=== PATIENT | male | born 1955 | race Caucasian/White ===

== ENCOUNTER 2016-11-11 06:40 | Observation (INO) | payer OTHER ==
[2016-11-11] VITALS (11 sets, daily range): BP systolic 125–158; BP diastolic 68–90; PULSE 56–89; TEMP 36.5–36.9; O2SAT 91–98; Ht 175.3 cm; Wt 91.7 kg
[~2016-11-11] VITALS: Ht 175.3 cm; Wt 91.7 kg
[~2016-11-11 06:40] MED LIST: ALLO300T2 PO; ASPI81TA28 PO; CLON0.5T3 PO; CLOP1TAB15 PO; LPR25 PO; LRS10; LSN5 PO; LXP/20 PO; NTRSLP4 SL; OMEP20CA9 PO; PRD10 PO; ZTA10 PO
[2016-11-11] MEDS ORDERED: ventolin hfa INH (06:46)
[2016-11-11] MEDS ORDERED: DOXY100T PO (06:47)
[2016-11-11] MEDS ORDERED: HEPARIN SOD (PORCINE) 1000 UNIT/ML 10 ML VIAL ONE (08:26)
[2016-11-11] MEDS ORDERED: FENTANYL CITRATE INJ 50 MCG/1 ML 2 ML VIAL ONE (08:26)
[2016-11-11] MEDS ORDERED: NiCARDipine HCL INJ 2.5 MG/ML 10 ML AMP ONE (08:26)
[2016-11-11] MEDS ORDERED: NITROGLYCERIN/D5W 100MCG/ML 20ML SYR ONE (08:27)
[2016-11-11] MEDS ORDERED: MIDAZOLAM HCL 1 MG/ML 2ML VIAL ONE ×2 (08:27→09:30)
[2016-11-11] MEDS ORDERED: EPTIFIBATIDE 0.75 MG/ML 75MG VIAL IV ONE ×2 (09:25→09:50)
[2016-11-11] MEDS ORDERED: EPTIFIBATIDE 2 MG/ML 10 ML VIAL IV ONE (09:25)
--- NOTE | 2016-11-11 09:57 | Cardiac Catheterization ---
Procedure Note Procedure Date Nov 11, 2016. 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 Gallagher Insurance Claims Adjuster(s) Kee RUBBER BELT SPLICER Estimated Blood Loss 5cc Medication(s) Fentanyl, Heparin, Nicardipine, Nitroglycerin, Versed, Lidocaine 1% Summary of Findings 95% distal RCA instent restenosis at the AV groove bifurcation 50% mid RCA in stent restenosis at the acute margin 50% mid LAD - angiographically unchanged compared to prior study Hemodynamics Rest Ao: 92/58/75 Final Ao: 106/64/82 LV: 105/4/8 Recommendations PCI without planned CABG Specimens None Radiation Exposure (mGy) 1488 Contrast (mls) 70 Procedural Complication(s) None Disposition Patient remained in labor trainer for PCI to RCA ACC Data Cardiac Status Clinical evaluation leading to the procedure CAD Presntation: Unstable angina, Positive Stress Test Anginal Classification: CCS III Heart Failure: No Stress Echocardiogram: Yes - Positive, Risk/Extent of Ischemia (High) Coronary Anatomy Dominant: Right Left Main (% Stenosis): Normal LAD (% Stenosis): Ostial (0%), Proximal (20%), Mid (50%), Distal (10% , small left to right collaterals noted) D1 (% Stenosis): Normal D2 (% Stenosis): Normal D3 (% Stenosis): Normal Circumflex (% Stenosis): Ostial (20%), Proximal (20%), Mid (10%), Distal (10%) OM1 (% Stenosis): Ostial (0%), Proximal (20%), Mid (10%), Distal (10%) L PL1 (% Stenosis): Ostial (small 1mm vessel with diffuse mild luminal irregularities (10%)) L PL2 (% Stenosis): Ostial (small 1mm vesssel with diffuse mild luminal irregularities (10%)) RCA (% Stenosis): Ostial (0%), Proximal (stent patent with 10% ISR), Mid (50% in stent restenosis at the acute margin), Distal (95% in stent restenosis) R PDA (% Stenosis): Ostial (20%), Proximal (10%), Mid (10%), Distal (10%) R PL1 (% Stenosis): Ostial (0%), Proximal (10%), Mid (10%), Distal (10%) R PL2 (% Stenosis): Ostial (30%), Proximal (20%), Mid (10%), Distal (10%) AM (% Stenosis): Ostial (30-40%), Proximal (0%), Mid (0%), Distal (0%) Ramus (% Stenosis): Normal Diagnostic Status: Elective Closure Device Percutaneous Entry Location: Radial Closure Device: Radial Band Intraprocedure Events Significant Dissection: No Perforation: No
[2016-11-11] MEDS ORDERED: NITROGLYCERIN 0.4 MG SL PER TAB CHARGE SL PRN (11:30)
[2016-11-11] MEDS ORDERED: CLONAZEPAM 0.5 MG TAB PO PRN (11:30)
[2016-11-11] MEDS ORDERED: ACETAMINOPHEN 325 MG TAB PO PRN (11:30)
[2016-11-11] MEDS ORDERED: ATROPINE SULFATE 0.1 MG/ML 5ML SYR IV PRN (11:30)
[2016-11-11] MEDS ORDERED: ALUMINUM/MAGNESIUM/SIMETH (MAALOX MAX) 30 ML UDC PO PRN (11:30)
[2016-11-11] MEDS ORDERED: MAGNESIUM HYDROXIDE SUSP 30 ML UDC PO PRN (11:30)
[2016-11-11] MEDS ORDERED: EPTIFIBATIDE BOLUS / DRIP IV ONE (11:30)
[2016-11-11] MEDS ORDERED: ZOLPIDEM TARTRATE 5 MG TAB PO PRN (11:30)
--- NOTE | 2016-11-11 11:39 | Procedure Note ---
Post-Mod Sedation Assessment General Date of Moderate Sedation Nov 11, 2016. Vital Signs: Vital Signs Past 12 Hours Date Time Temp Pulse Resp B/P Pulse Ox O2 Delivery O2 Flow Rate FiO2 11/11/16 11:30 60 18 124/75 95 Room Air 11/11/16 11:15 59 18 125/75 95 Room Air 11/11/16 10:55 60 18 128/68 95 Room Air 11/11/16 07:17 36.5 63 16 158/90 95 Room Air Review - Discharge Criteria Vital Signs Stable: Yes Alert/Oriented/Conversant: Yes Returned to Baseline Mental St: Yes Nausea Absent/Minimal: Yes Pain/Discomfort/Absent/Minimal: Yes Normal/Baseline Respirations: Yes Active Bleeding?: No Pt Received D/C Instructions: N/A Prescriptions Given: None Specific Proced. D/C Criteria Distal Pulses Present (Cardiac: Yes Groin site assessed-Card Cath: N/A Voided Prior To Discharge: N/A Discharged Patients Adult Escort/Transportation: N/A
--- NOTE | 2016-11-11 11:58 | Cardiac Catheterization ---
Procedure Note Procedure Date Nov 11, 2016. Pre-Procedure Diagnosis Angina, Positive Stress Test, CAD AUC Score 8 Post-Procedure Diagnosis Severe CAD, Successful PCI Procedure(s) Performed Coronary Angiography, PTCA, Drug Eluting Stent Outpatient Admitting Clerk Dr. Tobar Care Services Manager(s) FARZANEH Lopez Estimated Blood Loss <45 ml Medication(s) Fentanyl, Heparin (Therapeutic activated clotting times documented), Integrilin , Nicardipine (Intracoronary and intra-arterial), Nitroglycerin (Intracoronary and intra-arterial), Versed, Lidocaine 1% Summary of Findings The patient was referred by Dr. Gallagher for PCI. Please see his diagnostic catheterization report. The patient had worsening anginal symptoms and stress imaging showing ahigh extent of ischemia. Site: 6 Fr slender Glidesheath R radial artery inserted at time of diagnostic procedure. Hemostasis: Terumo TR band Complications: none Findings: 95-99% subtotal distal RCA stenosis involving origin of PDA. After the 95-99 % stenosis there was a 50% stenosis. AMELIA 2 flow into PDA. PTCA( 2 X 12 mm Sprinter, 2.25 X 10 mm [place] [employer] cutting balloon) and PALLAVI ( Medtronic Resolute Integrity 2.25 X 22 mm, post dilated with NC Trek 2.5 X 15 mm balloon). Residual stenosis at stent site 0-10%. Stent deployed over origin of PDA. No dissection,thrombus,perforation,or distal embolic event. AMELIA 3 flow in distal RCA and R PL. Improved flow in PDA compared to pre intervention. Ostial PDA 30-50% stenosis. Distal RCA with 50% stent stenosis prior to stent. Present on diagnostic angiography. Plan: Admit for OBS. IV Integrilin for 18 hr. Continue aspirin,clopidogrel, lisinopril,metoprolol. Patient intolerant of statins. Hemodynamics Rest Ao: 92/58/75 mm Hg Final Ao: 127/66/91 mm Hg LV: NA Recommendations Medical therapy and/or Counseling, PCI without planned CABG Specimens None Radiation Exposure (mGy) 5419 total for both diagnostic and PCI procedures Contrast (mls) 280 ml Optiray total for both procedures Fluids (cc crystalloids) 450 total for both procedures. Drains none Anesthesia IV versed,fenatnyl Procedural Complication(s) None Disposition PCU ACC Data Cardiac Status Clinical evaluation leading to the procedure CAD Presntation: Unstable angina (For complete details of diagnostic procedure ,clinical history, and indications please see diagnostic cardiac catheterization report by Dr. Gallagher.), Positive Stress Test Diagnostic Physician's Name: Carlos Gallagher DO Status: Elective Closure Device Percutaneous Entry Location: Radial Closure Device: Radial Band PCI Indication: Unstable Angina, Angina despite med therapy, + Stress Test Lesion Segment Name: Dista RCA Culprit Artery: Yes Stenosis Prior to Rx (%): 99 Chronic Total Occlusion: No IVUS: No FFR: No Pre-Procedure AMELIA Flow: 3 Previously Treated Lesion: Yes Treated Lesion: Timeframe: greater than 2 years Treated with Stent: Yes In-Stent Restenosis: Yes In-Stent Thrombosis: No Stent Type: Non-PALLAVI Lesion Complexity: Non-High/Non-C Lesion Length (mm): 18 Thrombus Present: No Bifurcation Lesion: Yes Guidewire Across Lesion: Yes Guidewire: Stenosis Post-Procedure (%): 0-10 Post-Procedure AMELIA Flow: 3 Device(s) Deployed: Yes Type of Device(s): Medtronic Resolute Integrity 2.25 X 22 mm PALLAVI post dilated with 2.5 X 15 mm NC balloon. Intraprocedure Events Significant Dissection: No Perforation: No
[2016-11-11 12:49] LABS: BASO % 0.3 %; BASO ABS # 0.03 K/uL (0-0.2); EOS % 1.5 %; HEMATOCRIT 43.1 % (42-52); IG% 0.2 %; LYMPH % 29.3 %; LYMPH ABS # 2.51 K/uL (1.2-3.4); MEAN CELL VOLUME 92.1 fL (80-100); MEAN CORPUSCULAR HEMOGLOBIN 32.1 pg (25-34); MEAN PLATELET VOLUME 9.5 fL (7.4-10.4); MONO % 4.3 %; NEUT % 64.4 %; PLATELET COUNT 254 K/uL (130-400); RED BLOOD COUNT 4.68 M/uL (4.7-6.1); WHITE BLOOD COUNT 8.58 K/uL (4.8-10.8)
[2016-11-11 12:52] LABS: COMPLETE YES; MEAN CORPUSCULAR HGB CONC 34.8 g/dl (32-36)
[2016-11-11] MEDS: SODIUM CHLORIDE 0.9% 1000ML 1,000 ML IV SCH ×2 (13:11→21:49)
[2016-11-11 13:13] LABS: BUN/CREATININE RATIO 14.2 (10-20); CREATININE 0.73 mg/dl (0.60-1.40)
[2016-11-11] MEDS ORDERED: ALBUTEROL HFA INHALER 18 GM INH PRN (13:15)
[2016-11-11] MEDS: EPTIFIBATIDE INJ 75 MG PREMIXED IV SCH ×2 (13:35→20:32)
[2016-11-11] MEDS ORDERED: IV FLUIDS COMPLETED PRN (15:15)
[2016-11-11] MEDS: PANTOprazole SOD 40 MG TAB PO SCH (20:32)
[2016-11-12] MEDS: EPTIFIBATIDE INJ 75 MG PREMIXED IV SCH (03:30)
[2016-11-12 03:59] VITALS: BP 127/69; PULSE 55; TEMP 37.1; O2SAT 98
[2016-11-12] MEDS ORDERED: Integrelin infusion --> STOP ORDER ONE (05:00)
[2016-11-12] MEDS: SODIUM CHLORIDE 0.9% 1000ML 1,000 ML IV SCH (07:30)
[2016-11-12 07:39] VITALS: BP 153/79; PULSE 59; TEMP 36.4; O2SAT 95
[2016-11-12 08:00] VITALS: O2SAT 95
[2016-11-12] MEDS: PANTOprazole SOD 40 MG TAB PO SCH (08:14)
[2016-11-12] MEDS: METOPROLOL TARTRATE 25 MG TAB PO SCH ×2 (08:15→08:18)
[2016-11-12] MEDS ORDERED: ALLOPURINOL 300 MG TAB PO SCH (09:00)
[2016-11-12] MEDS ORDERED: CLOPIDOGREL BISULFATE 75 MG TAB PO SCH ×2 (09:00)
[2016-11-12] MEDS ORDERED: LISINOPRIL 5 MG TAB PO SCH (09:00)
[2016-11-12] MEDS ORDERED: ASPIRIN 81 MG ECTAB PO SCH (09:00)
[2016-11-12] MEDS ORDERED: ESCITALOPRAM OXALATE 20 MG TAB PO SCH (09:00)
--- NOTE | 2016-11-12 09:58 | Cardiology Follow-Up ---
Subjective General Date of Service: Nov 12, 2016. Pt evaluation today including: conversation w/ patient, physical exam, chart review, lab review, review of studies, review of inpatient medication list History of Present Illness The patient is a 61 year old male seen in follow up. Feeling well from a cardiovascular standpoint. No recurrent chest discomfort. No dysrhythmia on telemetry. Offers no complaints at this time. Allergies Coded Allergies: Penicillins (Verified Allergy, Intermediate, HIVES, 12/06/15) Sulfa Antibiotics (Verified Allergy, Intermediate, HIVES, 12/06/15) Azithromycin (Verified Allergy, Unknown, HIVES, 12/06/15) Tetanus Toxoid (Verified Allergy, Unknown, swelling, 12/06/15) Simvastatin (Verified Adverse Reaction, Unknown, MUSCLE PAIN, 12/06/15) Social History Smoking Status: Current Every Day Smoker Hx Tobacco Use In Past Year?: Yes Hx Alcohol Use - Type And Amou: No (hx of ) Hx Substance Use - Type And Am: No Review of Systems Respiratory: No cough, No dyspnea at rest, No dyspnea on exertion, No hemoptysis, No shortness of breath, No sputum, No wheezing Cardiac: No PND, No chest pain, No claudication, No edema, No orthopnea, No palpitations Physical Exam Vital Signs Last Vital Signs Documentation Date Time Temp Pulse Resp B/P Pulse Ox O2 Delivery O2 Flow Rate FiO2 11/12/16 09:27 Room Air 11/12/16 08:00 95 11/12/16 07:39 36.4 59 16 153/79 Physical Exam Constitutional: General Apperance: well-nourished Level of Distress: NAD Ambulation: ambulating normally Head: normocephalic, atraumatic Neck: supple, trachea midline Lungs: Auscultation: breath sounds normal, no wheezing, no rales/crackles, no rhonchi Cardiovascular: Heart Auscultation: RRR, normal S1, normal S2, no murmurs, no rubs, no gallops Peripheral Pulses: Radial Pulse: normal on the left, normal on the right Abdomen: Bowel Sounds: normal Inspection & Palpation: soft, non-distended, no tenderness, guarding & rebound Extremities: no cyanosis, no edema, no clubbing, no ulcers Neurologic: Gait & Station: pertinent finding (No focal motor deficit) Cranial Nerves: grossly intact Assessment and Plan Assessment and Plan Imp: 1. S/p cardiac catheterization revealing RCA distal BMS in-stent restenosis - s/ p PALLAVI. 2. Residual 50% mid LAD and 50% mid RCA BMS ISR 3. Dyslipidemia 4. Tobacco abuse 5. Statin intolerance Plan: Post catheterization activity restrictions reviewed. Stressed importance of continuing plavix for a minimum of one year post-PCI uninterrupted. Other cardiovascular medications will be continued as previously ordered. Smoking cessation advised. Follow up with Dr. Mills as scheduled. Laboratory Results Last 24 Hours Test 11/11/16 10:08 11/11/16 10:20 11/11/16 12:35 Kaolin Activated Coagulation Time 0 SECONDS 642 SECONDS White Blood Count 8.58 K/uL Red Blood Count 4.68 M/uL Hemoglobin 15.0 g/dL Hematocrit 43.1 % Mean Corpuscular Volume 92.1 fL Mean Corpuscular Hemoglobin 32.1 pg Mean Corpuscular Hemoglobin Concent 34.8 g/dl Platelet Count 254 K/uL Mean Platelet Volume 9.5 fL Neutrophils (%) (Auto) 64.4 % Lymphocytes (%) (Auto) 29.3 % Monocytes (%) (Auto) 4.3 % Eosinophils (%) (Auto) 1.5 % Basophils (%) (Auto) 0.3 % Neutrophils # (Auto) 5.52 K/uL Lymphocytes # (Auto) 2.51 K/uL Monocytes # (Auto) 0.37 K/uL Eosinophils # (Auto) 0.13 K/uL Basophils # (Auto) 0.03 K/uL RDW Standard Deviation 46.4 fL RDW Coefficient of Variation 13.8 % Immature Granulocyte % (Auto) 0.2 % Immature Granulocyte # (Auto) 0.02 K/uL Sodium Level 139 mmol/L Potassium Level 4.0 mmol/L Chloride Level 106 mmol/L Carbon Dioxide Level 23 mmol/L Anion Gap 10.0 mmol/L Blood Urea Nitrogen 10 mg/dl Creatinine 0.73 mg/dl Est Creatinine Clear Calc Drug Dose 122.7 ml/min Estimated GFR () 117.7 Estimated GFR (Non- 101.5 BUN/Creatinine Ratio 14.2 Random Glucose 112 mg/dl Calcium Level 9.0 mg/dl
--- NOTE | 2016-11-12 10:01 | Discharge Instructions ---
Discharge Instructions Procedure Procedure Date: Nov 12, 2016. Reason for Visit: Abdnormal Stress Test *Dr Gallagher To Do*. Discharge Discharge Date: Nov 12, 2016. Discharge Diagnosis: RCA in-stent restenosis s/p PALLAVI Last Recorded Wt (Kilograms): 91.700 Anesthesia Post Anesthesia Instructions: If you have had General Anesthesia or IV Sedation: * Do not drive today. * Resume driving when surgeon permits. * Do not make important decisions or sign legal documents today. * Call surgeon for: 1. Temperature elevations greater than 101 degrees F. 2. Uncontrollable pain. 3. Excessive bleeding. 4. Persistent nausea and vomiting. 5. Medication intolerance (nausea, vomiting or rash). * For nausea and vomiting use only clear liquids such as: tea, soda, bouillon until nausea subsides, then gradually increase diet as tolerated. * If you have any concerns or questions, call your surgeon's office. If physician is unavailable and it is an emergency, call 911 or go to the nearest emergency room. Instructions Activity Recommendations: limitations as noted below Return to School/Work: with the following limitations Recommended Home Diet: resume previous diet Allergies: Coded Allergies: Penicillins (Verified Allergy, Intermediate, HIVES, 12/06/15) Sulfa Antibiotics (Verified Allergy, Intermediate, HIVES, 12/06/15) Azithromycin (Verified Allergy, Unknown, HIVES, 12/06/15) Tetanus Toxoid (Verified Allergy, Unknown, swelling, 12/06/15) Simvastatin (Verified Adverse Reaction, Unknown, MUSCLE PAIN, 12/06/15) Provider Instructions ACTIVITY RECOMMENDATIONS: Excess manipulation of the wrist should be avoided for the next 24-48 hours. * No lifting over 2 pounds (approximately a 1/2 gallon of milk) with the utilized arm for 24 hours. * No strenuous activity such as bowling or tennis for 3 days. * Keep the site of the procedure covered with a bandage for 24 hours. *You may shower the day after the procedure. Do not take a tub bath or submerge the puncture site in water for the next 3 days. *Do not operate any motorized equipment for 3 days. SPECIAL CARE INSTRUCTIONS: The site may be slightly bruised and sore following your procedure. Should any of the following occur, contact the DrZoey who performed your procedure. 1. Redness/inflammation, swelling, chills, or fever, or colored drainage at procedure site within 3-7 days after your procedure. 2. Coldness, discoloration, ongoing numbness, severe pain, or swelling. Expect mild tingling of hand and tenderness at the puncture site for up to three days. If this persists beyond three days, or other symptoms develop, notify the Dr. who performed your procedure. BLEEDING: If the procedure site on your wrist begins to bleed, do not panic 1. Place 1 or 2 fingers firmly just slightly above the insertion site to stop the bleeding. You may be able to feel your pulse as you hold pressure. 2. Lift your finger after 5 minutes to see if the bleeding has stopped. 3. Once the bleeding has stopped, gently wipe the wrist area clean with a bandage. * If the bleeding from your wrist does not stop after 10 minutes, or if there is a large amount of bleeding or spurting, call 911 (do not drive yourself to the hospital). SKIN IRRITATION: * You may experience some redness and/or swelling in the area where radiation was administered. If any skin irritation occurs, please contact your family physician. FOLLOW UP VISIT: Keep any scheduled doctor appointments. Follow Up Follow-up with: Dr. Mills as schedule December 17, 2016 Elvia Seo Recommendations: Call your doctor if: * Temperature above 101 degrees * Pain not relieved by pain medicine ordered * There is increased drainage or redness from any incision * You have any unanswered questions or concerns. Your Doctors Instructions noted above were prepared by provider Carlos Gallagher. Patient Signature Section: Patient Instructions Signature Page Dennis Ronak Patient (or Guardian) Signature/Date: I have read and understand the instructions given to me by my caregivers. Caregiver/RN/Doctor Signature/Date: The above-named patient and/or guardian has received patient instructions on this date. + Original Patient Signature Page (only) stays with chart. Please make copy for patient.
--- NOTE | 2016-11-12 10:31 | DISCHARGE SUMMARY ---
REFERRING PHYSICIAN: Dr. Mannie Mills. ADMITTING DIAGNOSIS: 1. Unstable angina. 2. Abnormal exercise stress echocardiography suggesting inferior posterior ischemia. 3. Chronic coronary disease. History of stenting to the right coronary artery. 4. Tobacco use. 5. Dyslipidemia with statin intolerance. DISCHARGE DIAGNOSIS: Coronary artery disease, status post drug-eluting stent implantation to the distal right coronary artery. PROCEDURES DURING HOSPITALIZATION: Cardiac catheterization, drug-eluting stent implantation to the right coronary artery. ADMISSION MEDICATIONS: 1. Plavix 75 mg daily. 2. Allopurinol 300 mg daily. 3. Aspirin 81 mg daily. 4. Lexapro 20 mg daily. 5. Lisinopril 5 mg daily. 6. Metoprolol tartrate 25 mg daily. 7. Protonic 40 mg twice daily. 8. Klonopin 0.25 mg twice daily as needed. 9. Sublingual nitro as needed. DISCHARGE MEDICATIONS: Same. HOSPITAL COURSE: The patient was admitted for observation 11/11/2016 for diagnostic catheterization. The cardiac catheterization revealed severe distal in-stent restenosis of his right coronary artery. A drug-eluting stent was successful implanted by Dr. Tobar. No complications. There is residual mid in-stent restenosis of the right coronary artery, as well as 50% mid LAD stenosis, which is unchanged. The patient tolerated the procedure well. No complications. See procedure report under separate cover. The patient was discharged to home in stable condition. No recurrent angina. Followup appointment scheduled with Dr. Mills on December 17.
[2016-11-12 10:44] VITALS: BP 153/79; PULSE 59; TEMP 36.4; O2SAT 95
== END 2016-11-12 11:05 | disposition home or self-care (01) ==
LOC: C.CATH 06:40 → C.2T 11:34
PROVIDERS: ADMIT Internal Medicine Cardiovascular Disease; ATTEND Internal Medicine Cardiovascular Disease
DX: I25.110 Atherosclerotic heart disease of native coronary artery with unstable angina pectoris (principal); E78.5 Hyperlipidemia, unspecified; F17.210 Nicotine dependence, cigarettes, uncomplicated

== ENCOUNTER 2016-12-31 17:03 | Emergency (ER) | payer OTHER ==
[~2016-12-31] VITALS: Ht 175.3 cm; Wt 90.8 kg
[~2016-12-31 17:03] MED LIST changes: +DOXY100T PO; -LRS10; -ZTA10 PO; +ventolin hfa INH
[2016-12-31 17:09] VITALS: TEMP 36.8; Ht 175.3 cm; Wt 90.8 kg
[2016-12-31] MEDS ORDERED: OPTIRAY 320 IV PRN (17:45)
[2016-12-31 17:48] LABS: BASO % 0.2 %; BASO ABS # 0.03 K/uL (0-0.2); COMPLETE YES; EOS % 0.8 %; HEMATOCRIT 42.1 % (42-52); IG% 0.4 %; LYMPH % 14.8 %; LYMPH ABS # 2.11 K/uL (1.2-3.4); MEAN CELL VOLUME 90.5 fL (80-100); MEAN CORPUSCULAR HEMOGLOBIN 31.2 pg (25-34); MEAN CORPUSCULAR HGB CONC 34.4 g/dl (32-36); MEAN PLATELET VOLUME 9.1 fL (7.4-10.4); MONO % 6.7 %; NEUT % 77.1 %; PLATELET COUNT 263 K/uL (130-400); RED BLOOD COUNT 4.65 M/uL (4.7-6.1); WHITE BLOOD COUNT 14.21 K/uL (4.8-10.8)
[2016-12-31] MEDS ORDERED: MoRPHine SULFATE 10 MG/ML CARP/VIAL IV STA (17:51)
[2016-12-31] MEDS ORDERED: ONDANSETRON INJ 2 MG/ML 2 ML VIAL IV STA (17:52)
[2016-12-31] MEDS ORDERED: MoRPHine SULFATE 4 MG/ML 1 ML CARP\\VIAL ONE (17:56)
[2016-12-31] MEDS ORDERED: NAPR-1168 PO (17:56)
[2016-12-31] MEDS ORDERED: EZET10TA63 PO (17:56)
[2016-12-31] MEDS ORDERED: ACET-1311 PO (17:56)
[2016-12-31] MEDS ORDERED: PRVHFAIN INH (17:56)
[2016-12-31] MEDS ORDERED: LSN5 PO (17:56)
[2016-12-31 18:11] LABS: BUN/CREATININE RATIO 13.1 (10-20); CALCIUM 8.8 mg/dl (8.5-10.1); CREATININE 0.78 mg/dl (0.60-1.40); POTASSIUM 3.6 mmol/L (3.5-5.1)
[2016-12-31 18:14] LABS: ALB/GLOB RATIO 0.9 (0.9-2)
--- NOTE | 2016-12-31 18:40 | DIAGNOSTIC IMAGING REPORT ---
CT SCAN OF THE ABDOMEN AND PELVIS WITH IV CONTRAST CLINICAL HISTORY: Left lower quadrant abdominal pain. COMPARISON STUDY: Abdominal CT dated 12/06/15. TECHNIQUE: Following the IV administration of 93 cc of Optiray 320, CT scan of the abdomen and pelvis is performed from the lung bases to the proximal femora. Images are reviewed in the axial, sagittal, and coronal planes. IV contrast was administered without complication. Automated dose control exposure was utilized. CT DOSE: 646.98 mGy.cm FINDINGS: Lung bases: The heart is mildly enlarged and without pericardial effusion. The coronary arteries are densely calcified. The lung bases are clear noting dependent atelectasis. There is a small hiatal hernia. Liver: The contrast-enhanced liver is enlarged, measuring 20 cm in length. The liver demonstrates diffusely diminished attenuation consistent with hepatic steatosis. There is minimal central intrahepatic biliary ductal dilatation. The hepatic veins and portal veins are patent. Gallbladder: Surgically absent noting clips in the gallbladder fossa. Spleen: Normal in size and attenuation. Pancreas: Unremarkable. Adrenal glands: Unremarkable. Kidneys: The contrast enhanced kidneys are normal in size and without hydronephrosis. The kidneys enhance symmetrically. There is nonspecific bilateral perinephric stranding which is unchanged from previous. Abdominal vasculature: The abdominal aorta is normal in course and caliber noting moderate to advanced atherosclerotic calcification. Bowel: The small bowel and colon are normal in course and caliber. There is mild to moderate colonic diverticulosis. There is wall thickening with associated pericolonic infiltration and trace fluid involving the distal descending colon consistent with acute diverticulitis. There is no evidence of abscess. The appendix is well-visualized and normal. Peritoneum: There is no intraperitoneal free air or abdominal ascites. A midline surgical scar is suspected in the pelvis. A tiny fat-containing umbilical hernia is seen. Lymphadenopathy: None. Pelvic viscera: The bladder, prostate, and seminal vesicles are normal as visualized. Skeletal structures: No lytic or blastic lesions are seen. There is mild lumbar sacral spondylosis. IMPRESSION: 1. Findings are consistent with acute diverticulitis involving the distal descending colon. No intraperitoneal free air or abscess is seen. 2. Hepatomegaly and hepatic steatosis. 3. There is advanced atherosclerotic calcification of the coronary arteries and abdominal aorta. 4. Additional findings as above. Electronically signed by: Vivek Pond M.D. 12/31/2016 6:39 PM Dictated Date/Time: 12/31/2016 6:33 PM
[2016-12-31 18:59] LABS: URINE APPEARANCE CLEAR (CLEAR); URINE BILIRUBIN NEG (NEG); URINE COLOR YELLOW; URINE NITRITE NEG (NEG); URINE PH 5.5 (4.5-7.5); URINE SPECIFIC GRAVITY 1.018 (1.000-1.030); UROBILINOGEN NEG (NEG)
[2016-12-31 19:12] LABS: MANUAL MICROSCOPIC REQUIRED? NO; REVIEW REQ? NO
[2016-12-31] MEDS ORDERED: HYDROmorphone INJ 1 MG/ML SYR IV STA (19:15)
[2016-12-31] MEDS ORDERED: METRONIDAZOLE 250 MG TAB PO STA (19:16)
[2016-12-31] MEDS ORDERED: CIPR-255 PO (19:25)
[2016-12-31] MEDS ORDERED: OXYC1TAB3 PO (19:25)
[2016-12-31] MEDS ORDERED: ONDA4TAB10 SL (19:25)
[2016-12-31] MEDS ORDERED: METR-163 PO (19:25)
--- NOTE | 2016-12-31 19:27 | EMERGENCY ROOM VISIT NOTE ---
History First contact with patient: 17:12 Chief Complaint: ABDOMINAL PAIN Stated Complaint: LEFT SIDE PAIN, ABDOMINAL PAIN Nursing Triage Summary: patient started with left sided pain last evening after working in the yard taking trees down. the pain has gotten worse on the left side radiated to the back with ambulation. states he had a stool yesterday with some fresh blood in it and does have hemorroids. no blood today. Aleksander is on plavix and aspirin. History of Present Illness The patient is a 61 year old male who presents to the Emergency Room with complaints of left lower quadrant abdominal pain which began last evening after working in the yard taking down trees. The patient reports he has a pain in his left lower abdomen which radiates into the right lower abdomen and into the back. He states he has associated diarrhea and did have a small amount of bright red blood in the stool. He reports that he has felt feverish. He has associated decreased appetite, nausea and dizziness. The patient does have a history of diverticulitis as well as a history of GI bleed. He reports a surgical history of a partial colectomy due to diverticulitis, cholecystectomy and fundoplication. The patient has been taking Tylenol at home for his pain with little relief. He rates the discomfort a 10/10. The pain is worse with movement or walking. The patient denies any headache, neck pain, chest pain, shortness of breath, urinary symptoms or vomiting. Review of Systems A complete 10-point Review of Systems was discussed with the patient, with pertinent positives and negatives listed in the History of Present Illness. All remaining Review of Systems questions can be considered negative unless otherwise specified. Past Medical/Surgical History Medical Problems: (1) Back pain (2) Chaves esophagus (3) CAD (coronary artery disease) (4) COPD (chronic obstructive pulmonary disease) (5) Depression (6) Dyslipidemia (7) Esophageal stricture (8) GI bleed (9) Gout (10) Hiatal hernia (11) Hypertension (12) Kidney stone (13) Sleep apnea (14) Tobacco abuse disorder (15) Upper GI bleed Surgical Problems: (1) H/O arthroscopy of knee (2) H/O colonoscopy (3) History of Wei fundoplication (4) History of ureter stent (5) Hx of cholecystectomy (6) S/P coronary artery stent placement (7) S/p EGD (8) S/p partial colectomy with anastomosis Family History Diabetes mellitus FH: cancer FH: heart disease BROTHER (VT and stents in 40s) FHx: gallbladder disease Kidney disease or stones Ulcer Social History Smoking Status: Current Every Day Smoker Alcohol Use: occasionally Drug Use: none Marital Status: Housing Status: lives with significant other Occupation Status: employed Current/Historical Medications Scheduled Allopurinol (Zyloprim), 300 MG PO QPM Aspirin (Aspirin Ec), 81 MG PO QPM Ciprofloxacin Hcl (Cipro), 500 MG PO BID Clopidogrel (Plavix), 75 MG PO QPM Escitalopram Oxalate (Escitalopram Oxalate), 20 MG PO QPM Ezetimibe (Zetia), 10 MG PO QPM Lisinopril (Lisinopril), 5 MG PO QPM Metoprolol Tartrate (Lopressor), 12.5 MG PO QPM Metronidazole (Flagyl), 500 MG PO TID Omeprazole (Prilosec), 20 MG PO QPM Ondasetron Odt (Zofran Odt), 4 MG SL Q6H Scheduled PRN Acetaminophen (Tylenol), 650 MG PO Q8 PRN for Pain Albuterol (Ventolin Hfa), 2 PUFF INH Q4 PRN for Wheezing Clonazepam (Klonopin), 0.25 MG PO BID PRN for Anxiety Naproxen Ds (Naprosyn Ds), 550 MG PO BID PRN for Pain Nitroglycerin (Nitrostat), 0.4 MG SL UD PRN for Chest Pain Oxycodone Ir (Roxicodone Ir), 1-2 TAB PO Q4H PRN for Pain Prednisone (Prednisone), 10 MG PO UD PRN for NEEDED RESCUE KIT Allergies Coded Allergies: Penicillins (Verified Allergy, Intermediate, HIVES, 12/31/16) Sulfa Antibiotics (Verified Allergy, Intermediate, HIVES, 12/31/16) Azithromycin (Verified Allergy, Unknown, HIVES, 12/31/16) Tetanus Toxoid (Verified Allergy, Unknown, swelling, 12/31/16) Simvastatin (Verified Adverse Reaction, Unknown, MUSCLE PAIN, 12/31/16) Physical Exam Vital Signs Date Time Temp Pulse Resp B/P Pulse Ox O2 Delivery O2 Flow Rate FiO2 12/31/16 20:03 78 129/82 95 12/31/16 19:03 69 20 140/73 93 Room Air 12/31/16 18:30 72 20 161/86 90 Room Air 12/31/16 17:09 36.8 77 18 143/87 96 Room Air Physical Exam VITALS: Vitals are noted on the nurse's note and reviewed by myself. Vital signs stable. GENERAL: This is a 61-year-old male, in no acute distress, nondiaphoretic, well- developed well-nourished. SKIN: Capillary reflex less than 2 seconds. HEENT: Normocephalic. PERRLA. EOMI. Nares patent. Mucous membranes moist. Neck is supple without nuchal rigidity. HEART: Regular rate and rhythm without murmurs gallops or rubs. LUNGS: Clear to auscultation bilaterally without wheezes, rales or rhonchi. ABDOMEN: Positive bowel sounds x 4. Soft, with moderate tenderness over the left lower quadrant. No guarding or rebound tenderness. NEURO: Patient was alert and oriented to person place and time. Medical Decision & Procedures ER Provider Diagnostic Interpretation: CT SCAN OF THE ABDOMEN AND PELVIS WITH IV CONTRAST IMPRESSION: 1. Findings are consistent with acute diverticulitis involving the distal descending colon. No intraperitoneal free air or abscess is seen. 2. Hepatomegaly and hepatic steatosis. 3. There is advanced atherosclerotic calcification of the coronary arteries and abdominal aorta. 4. Additional findings as above. Laboratory Results 12/31/16 17:35 Red Blood Count 4.65, Mean Corpuscular Volume 90.5, Mean Corpuscular Hemoglobin 31.2, Mean Corpuscular Hemoglobin Concent 34.4, Mean Platelet Volume 9.1, Neutrophils (%) (Auto) 77.1, Lymphocytes (%) (Auto) 14.8, Monocytes (%) (Auto) 6.7, Eosinophils (%) (Auto) 0.8, Basophils (%) (Auto) 0.2, Neutrophils # (Auto) 10.95, Lymphocytes # (Auto) 2.11, Monocytes # (Auto) 0.95, Eosinophils # (Auto) 0.12, Basophils # (Auto) 0.03 12/31/16 17:35 Test 12/31/16 17:35 12/31/16 18:05 White Blood Count 14.21 K/uL (4.8-10.8) Red Blood Count 4.65 M/uL (4.7-6.1) Hemoglobin 14.5 g/dL (14.0-18.0) Hematocrit 42.1 % (42-52) Mean Corpuscular Volume 90.5 fL (80-100) Mean Corpuscular Hemoglobin 31.2 pg (25-34) Mean Corpuscular Hemoglobin Concent 34.4 g/dl (32-36) Platelet Count 263 K/uL (130-400) Mean Platelet Volume 9.1 fL (7.4-10.4) Neutrophils (%) (Auto) 77.1 % Lymphocytes (%) (Auto) 14.8 % Monocytes (%) (Auto) 6.7 % Eosinophils (%) (Auto) 0.8 % Basophils (%) (Auto) 0.2 % Neutrophils # (Auto) 10.95 K/uL (1.4-6.5) Lymphocytes # (Auto) 2.11 K/uL (1.2-3.4) Monocytes # (Auto) 0.95 K/uL (0.11-0.59) Eosinophils # (Auto) 0.12 K/uL (0-0.5) Basophils # (Auto) 0.03 K/uL (0-0.2) RDW Standard Deviation 45.8 fL (36.4-46.3) RDW Coefficient of Variation 14.0 % (11.5-14.5) Immature Granulocyte % (Auto) 0.4 % Immature Granulocyte # (Auto) 0.05 K/uL (0.00-0.02) Anion Gap 11.0 mmol/L (3-11) Est Creatinine Clear Calc Drug Dose 113.6 ml/min Estimated GFR () 114.5 Estimated GFR (Non- 98.8 BUN/Creatinine Ratio 13.1 (10-20) Calcium Level 8.8 mg/dl (8.5-10.1) Total Bilirubin 0.6 mg/dl (0.2-1) Aspartate Amino Transf (AST/SGOT) 13 U/L (15-37) Alanine Aminotransferase (ALT/SGPT) 24 U/L (12-78) Alkaline Phosphatase 119 U/L (45-117) Total Protein 7.5 gm/dl (6.4-8.2) Albumin 3.6 gm/dl (3.4-5.0) Globulin 3.9 gm/dl (2.5-4.0) Albumin/Globulin Ratio 0.9 (0.9-2) Lipase 128 U/L (73-393) Urine Color YELLOW Urine Appearance CLEAR (CLEAR) Urine pH 5.5 (4.5-7.5) Urine Specific [place] 1.018 (1.000-1.030) Urine Protein NEG (NEG) Urine Glucose (UA) NEG (NEG) Urine Ketones NEG (NEG) Urine Occult Blood NEG (NEG) Urine Nitrite NEG (NEG) Urine Bilirubin NEG (NEG) Urine Urobilinogen NEG (NEG) Urine Leukocyte Esterase NEG (NEG) Medications Administered Medications (Trade) Dose Ordered Sig/Jaime Route Start Time Stop Time Status Last Admin Dose Admin Ondansetron HCl (Zofran Inj) 4 mg NOW STAT IV 12/31/16 17:52 12/31/16 17:53 DC 12/31/16 18:01 4 MG Morphine Sulfate (MoRPHine SULFATE INJ) 8 mg STK-MED ONCE .ROUTE 12/31/16 17:56 12/31/16 18:00 DC 12/31/16 18:02 8 MG Hydromorphone HCl (Dilaudid Inj) 1 mg NOW STAT IV 12/31/16 19:15 12/31/16 19:16 DC 12/31/16 19:52 1 MG Oxycodone HCl (Roxicodone Immediate Rel 5MG Home Pack) 1 homepack UD ONCE PO 12/31/16 19:30 12/31/16 19:31 DC 12/31/16 19:53 1 HOMEPACK Ondansetron HCl (ZOFRAN ODT 4MG Home Pack) 1 homepack UD ONCE PO 12/31/16 19:30 12/31/16 19:31 DC 12/31/16 19:53 1 HOMEPACK Ciprofloxacin (Cipro 500MG Home Pack) 1 homepack UD ONCE PO 12/31/16 19:30 12/31/16 19:31 DC 12/31/16 19:53 1 HOMEPACK Metronidazole (Flagyl Tab) 1,000 mg NOW STAT PO 12/31/16 19:16 12/31/16 19:19 DC 12/31/16 19:52 1,000 MG Medical Decision Differential diagnosis includes diverticulitis, colitis, gastroenteritis, abscess, perforation, lower GI bleed, small bowel obstruction, malignancy, urinary tract infection, among others. The patient was evaluated as above. Labs were drawn and IV access was obtained. Imaging studies were performed and read by radiology as above. The patient was medicated with 1 L normal saline solution, 4 mg Zofran IV and 8 mg morphine IV. The patient did report additional pain and was given an additional 1 mg Dilaudid IV prior to discharge. The patient was reassessed multiple times during their stay in the emergency department and remained in stable condition. The patient is a 61-year-old male who presents today complaining of left lower quadrant pain and diarrhea. Labs revealed a moderate leukocytosis with left shift consistent with infection. No concerning anemia. Patient's glucose was slightly elevated at 108, likely secondary to stress. Urinalysis was not suggestive of infection. CT scan of the abdomen and pelvis did show evidence of acute diverticulitis without perforation or abscess. The patient is afebrile and nontoxic in appearance. No concern for sepsis. The patient's bleeding is likely secondary to diverticulitis, and hemoglobin is within normal limits. I do feel the patient can be treated on an outpatient basis. Conservative measures were discussed with the patient. He will be placed on ciprofloxacin and Flagyl. He was given a prescription for OxyIR and Zofran for symptomatic relief. Concerning symptoms which would necessitate return to the emergency department were discussed with the patient. He was instructed to follow-up with his primary care provider within 3-4 days for further evaluation. Based on the patient's presentation, lab results, and imaging studies, I feel the patient is stable for outpatient treatment. The patient's case was reviewed with Dr. Maza, ED attending physician, who agreed with my assessment and treatment plan. Discharge instructions were reviewed with the patient. The patient verbalized understanding of my assessment and treatment plan and was discharged home in good condition. [place] Drug Monitoring Program Search Results: patient reviewed within database, no issues identified Impression Primary Impression: Diverticulitis Departure Information Dispostion Home / Self-Care Condition GOOD Prescriptions Ondasetron Odt (ZOFRAN ODT) 4 Mg Tab 4 MG SL Q6H for Nausea, #15 TAB Prov: Tosha Rae PA-C 12/31/16 Oxycodone Ir (Roxicodone Ir) 5 Mg Tab 1-2 TAB PO Q4H Y for Pain, #15 TAB For Initial Treatment Prov: Tosha Rae PA-C 12/31/16 Metronidazole (Flagyl) 500 Mg Tab 500 MG PO TID for 14 Days, #42 TAB Prov: Tosha Rae PA-C 12/31/16 Ciprofloxacin Hcl (CIPRO) 500 Mg Tab 500 MG PO BID for 14 Days, #28 TAB Prov: Tosha Rae PA-C 12/31/16 Referrals Marquise Orozco M.D. (PCP) Forms Call Back Authorization, HOME CARE DOCUMENTATION FORM, IMPORTANT VISIT INFORMATION Patient Instructions My [facility] Additional Instructions You were prescribed Cipro and Flagyl to be taken as prescribed. This is an antibiotic. All antibiotics have the potential to cause diarrhea. Stop this medication and contact a medical provider if you were to develop any significant adverse side effects including: wheezing, shortness of breath, passing out, vomiting, or a diffuse rash. Always take antibiotics as directed and COMPLETE the ENTIRE course regardless of the improvement of your symptoms. You have been prescribed OxyIR to be used for pain control. Take 1-2 tablets every 4-6 hours as needed for pain. This is a narcotic medication. You cannot drive or consume alcohol while on this medicine. This medicine should only be used for pain that cannot be controlled with [id number] pain medicines. You have been prescribed Zofran to be used for any nausea or vomiting. Take as prescribed. Clear liquid diet for the next 3-4 days, then advance as tolerated. Follow-up with your primary care provider in 3-4 days for further evaluation. Return to the emergency room with fevers, worsening pain, worsening vomiting, large amounts of blood in your stool or any other new/concerning symptoms. Problem Qualifiers Primary Impression: Diverticulitis Diverticulitis site: large intestine Diverticulitis bleeding: with bleeding Diverticulitis complication: without perforation or abscess Qualified Codes : K57.33 - Diverticulitis of large intestine without perforation or abscess with bleeding
[2016-12-31] MEDS ORDERED: ONDANSETRON HOME PACK 4MG OD TAB PO ONE (19:30)
[2016-12-31] MEDS ORDERED: OXYCODONE IR HOME PACK PO ONE (19:30)
[2016-12-31] MEDS ORDERED: CIPROFLOXACIN 500MG HOME PACK PO ONE (19:30)
[2016-12-31 20:03] VITALS: BP 129/82; PULSE 78; O2SAT 95
== END 2016-12-31 20:04 | disposition home or self-care (01) ==
LOC: C.EDB 17:05
DX: K57.32 Diverticulitis of large intestine without perforation or abscess without bleeding (principal); I10 Essential (primary) hypertension; I25.10 Atherosclerotic heart disease of native coronary artery without angina pectoris; E78.5 Hyperlipidemia, unspecified; J44.9 Chronic obstructive pulmonary disease, unspecified; G47.30 Sleep apnea, unspecified; M10.9 Gout, unspecified; K22.2 Esophageal obstruction; F32.9 Major depressive disorder, single episode, unspecified; F17.200 Nicotine dependence, unspecified, uncomplicated; Z87.19 Personal history of other diseases of the digestive system; Z90.49 Acquired absence of other specified parts of digestive tract; Z98.61 Coronary angioplasty status; Z98.890 Other specified postprocedural states; Z79.82 Long term (current) use of aspirin; Z79.899 Other long term (current) drug therapy; Z88.0 Allergy status to penicillin; Z88.2 Allergy status to sulfonamides; Z88.3 Allergy status to other anti-infective agents; Z88.8 Allergy status to other drugs, medicaments and biological substances; Z83.3 Family history of diabetes mellitus; Z80.9 Family history of malignant neoplasm, unspecified; Z82.49 Family history of ischemic heart disease and other diseases of the circulatory system; Z83.79 Family history of other diseases of the digestive system; Z84.1 Family history of disorders of kidney and ureter

== ENCOUNTER → 2017-11-17 | Outpatient (CLI) | payer OTHER ==
[~2017-11-17] MED LIST changes: +ACET-1311 PO; +CIPR-255 PO; -DOXY100T PO; +EZET10TA63 PO; +NAPR-1168 PO; +PRVHFAIN INH; -ventolin hfa INH
--- NOTE | 2017-11-17 08:57 | DIAGNOSTIC IMAGING REPORT ---
R LOWER EXT JOINT WITHOUT CLINICAL HISTORY: 62 years-old Male with RT KNEE PAIN. Chronic right knee pain with prior ACL repair COMPARISON: Knee radiographs 08/19/2016 TECHNIQUE: Multiplanar, multisequence MRI of the right knee was performed without intravenous contrast. FINDINGS: MENISCI: Horizontal undersurface tear involves the medial meniscal body and posterior junction. Vertical tear involves the posterior horn medial meniscus as seen on image 19 series 8 which is not as well seen on the sagittal images. No definite extension into the meniscal root. No displaced fragment identified. CRUCIATE LIGAMENTS: Prior ACL repair with graft appearing intact. Mild angulation of the graft suggests mild root impingement. No evidence of a cyclops lesion. PCL appears intact. COLLATERAL LIGAMENTS: The popliteus tendon, biceps femoris tendon, fibular collateral ligament and iliotibial band are intact. The superficial and deep components of the medial collateral ligament are intact. EXTENSOR MECHANISM: The quadriceps and patellar tendons are intact. The lateral patellar retinaculum is intact. There is moderate thickening with immediate signal involving the insertional aspect of the medial patellar retinaculum suggesting chronic sprain. KNEE JOINT: Moderate joint effusion. Mild associated synovitis. There is mild joint space narrowing with low and intermediate grade chondromalacia involving the medial compartment. No significant joint space narrowing or chondral malacia of the lateral compartment. Intermediate chondral thinning involves the patellar apex without intra-articular loose body identified. 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 BONE MARROW: The bone marrow signal is age appropriate. No fracture, marrow edema, or marrow replacing process. SOFT TISSUES: Mild bursitis of the deep pretibial bursa. Mild soft tissue edema without focal fluid collection within the prepatellar tissues. Mild edema within the infrapatellar fat. Trace Beck's cyst. IMPRESSION: 1. Intact ACL graft with mild roof impingement. No evidence of localized anterior arthrofibrosis or cyclops lesion. 2. Horizontal undersurface tear of the body and posterior junction medial meniscus with vertical tear of the posterior horn medial meniscus. No displaced fragment or parameniscal cyst. 3. Degenerative changes about the knee, most pronounced within the medial and patellofemoral compartments as above. 4. Moderate joint effusion with mild synovitis. The above report was generated using voice recognition software. It may contain grammatical, syntax or spelling errors. Electronically signed by: Perfecto Horton M.D. 11/17/2017 8:56 AM Dictated Date/Time: 11/17/2017 8:31 AM
== END | disposition home or self-care (01) ==
LOC: C.MRI 06:17
PROVIDERS: ATTEND Physical Medicine & Rehabilitation Sports Medicine
DX: M25.561 Pain in right knee (principal)

== ENCOUNTER → 2017-12-12 | Outpatient (CLI) | payer OTHER ==
[~2017-12-12] MED LIST changes: +ASPI325T45 PO; +HYDR-5688 PO; +METR-163 PO; -NAPR-1168 PO; -OMEP20CA9 PO
== END | disposition home or self-care (01) ==
LOC: C.CPL 10:19
PROVIDERS: ATTEND Physician Assistant
DX: S83.231A Complex tear of medial meniscus, current injury, right knee, initial encounter (principal); Z01.818 Encounter for other preprocedural examination; X58.XXXA Exposure to other specified factors, initial encounter

== ENCOUNTER → 2017-12-17 | Day surgery (SDC) | payer OTHER ==
[2017-11-26 08:54] VITALS: BMI 29.0
[2017-12-12 11:10] LABS: HEMATOCRIT 46.1 % (42-52); HEMOGLOBIN 15.7 g/dL (14.0-18.0); MEAN CELL VOLUME 92.9 fL (80-100); MEAN CORPUSCULAR HEMOGLOBIN 31.7 pg (25-34); MEAN CORPUSCULAR HGB CONC 34.1 g/dl (32-36); MEAN PLATELET VOLUME 9.2 fL (7.4-10.4); PLATELET COUNT 284 K/uL (130-400); RED CELL DISTRIBUTION WIDTH CV 13.5 % (11.5-14.5); RED CELL DISTRIBUTION WIDTH SD 45.9 fL (36.4-46.3); WHITE BLOOD COUNT 8.15 K/uL (4.8-10.8)
[2017-12-12 11:34] LABS: CALCIUM 9.4 mg/dl (8.5-10.1); CREATININE 1.02 mg/dl (0.60-1.40); POTASSIUM 4.3 mmol/L (3.5-5.1)
[~2017-12-17] VITALS: Ht 175.3 cm; Wt 91.4 kg
[~2017-12-17] MED LIST changes: +ATROPINE SULFATE 0.1 MG/ML 5ML SYR IV PRN; +CLINDAMYCIN IV 900 MG in DEXTROSE 5% 50ML IV SCH; +CLINDAMYCIN PHOS 150 MG/ML 2 ML VIAL IV SCH; +DEXAMETHASONE SOD INJ 4 MG/ML VIAL ONE; +EpHEDrine SULFATE INJ 50 MG/ML AMP IV PRN; +EpINEphrine HCL INJ 1 MG/ML 1ML SYRINGE ONE; +FENTANYL CITRATE INJ 50 MCG/1 ML 2 ML VIAL IV PRN; +FENTANYL CITRATE INJ 50 MCG/1 ML 2 ML VIAL ONE; +FLUMAZENIL 0.1 MG/1 ML 10 ML VIAL IV PRN; +HYDROmorphone INJ 1 MG/ML SYR IV PRN; +HYDROmorphone INJ 2 MG/ML SYR/VIAL IV PRN; +LABETALOL HCL IV 5 MG/ML 20ML IV PRN; +LIDOCAINE HCL 2% 2 ML VIAL (20MG/ML) ONE; +LIDOCAINE/EPINEPHRINE 1% 20 ML VIAL ONE; +MEPERIDINE HCL 25 MG/ML CARP IV PRN; +MIDAZOLAM HCL 1 MG/ML 2ML VIAL ONE; +MoRPHine SULFATE 2 MG/ML CARP IV PRN; +MoRPHine SULFATE 4 MG/ML 1 ML CARP\\VIAL IV PRN; +NALOXONE HCL 0.4 MG/1 ML VIAL/CARP IV PRN; +ONDANSETRON INJ 2 MG/ML 2 ML VIAL IV PRN; +ONDANSETRON INJ 2 MG/ML 2 ML VIAL ONE; +OXYCODONE/ACETAMINOPHEN 5-325 TAB PO PRN; +PHENYLEPHRINE 100MCG/ML 5ML SYR IV PRN; +PROPOFOL IV EMULSION 10 MG/ML 20 ML VIAL IV ONE; +SODIUM CHLORIDE 0.9% 1000ML 1,000 ML IV SCH
[2017-12-17] MEDS: LACTATED RINGER'S 1000ML 1,000 ML IV SCH ×2 (12:31→15:39)
--- NOTE | 2017-12-17 12:42 | History & Physical Bridge Note ---
H&P Re-Evaluation Bridge Note: I have examined the patient, reviewed the History & Physical and in the interval since the performance of the History & Physical I have noted the following changes of clinical significance: No changes noted
[2017-12-17 15:26] VITALS: BP 159/90; PULSE 70; TEMP 36.6; O2SAT 96; Ht 175.3 cm; Wt 91.4 kg
--- NOTE | 2017-12-17 17:52 | [facility] Post Operative Brief Note ---
Immediate Operative Summary Operative Date Dec 17, 2017. Pre-Operative Diagnosis r knee medial meniscus tear, chondromalacia Post-Operative Diagnosis same, medial scarring Procedure(s) Performed chondroplasty, partial medial menisectomy, arthroscopy, scar debridement Surgeon lucía Medical Imaging Specialist Surgeon(s) tapan Estimated Blood Loss minimal Findings Consistent with Post-Op Diagnosis Specimens none Drains None Anesthesia Type General Complication(s) none Disposition Accompanied Pt To Recovery: no Disposition: Recovery Room / PACU
--- NOTE | 2017-12-17 18:04 | [facility] Operative Report ---
Operative Report Operative Date Dec 17, 2017. Pre-Operative Diagnosis r knee medial meniscus tear, chondromalacia Post-Operative Diagnosis same, medial scarring Procedure(s) Performed chondroplasty, partial medial menisectomy, arthroscopy, scar debridement Surgeon lucía Meat Boner Surgeon(s) tapan Estimated Blood Loss minimal Specimens none Drains None Anesthesia Type General Complication(s) none Disposition no Recovery Room / PACU Indications Patient is a 62-year-old male who is over a year out from a work-related injury to his right knee. He has had persistent medial sided knee pain refractory to nonsurgical methods of management including physical therapy cortisone shots and medications. He is status post a ACL reconstruction and a partial medial meniscectomy. His diagnostic studies show that he has some chondrosis of the medial compartment and what looks like a medial meniscus tear. He had a ME and had a stent placed. He was on Plavix. He could not have surgery due to this event. He has not been cleared by cardiology. His surgeries moved to the hospital as the schedule at the surgical center was running late. Description of Procedure Informed consent was obtained. The patient was identified as Dennis langford. The operative site was identified as the right knee which I marked with my initials. A preop dose of IV antibiotics was given. The patient was positioned supine on the operating room table. A preoperative surgical timeout was performed. The examination under anesthesia showed full extension flexion to 140. Intact cruciates and collaterals. Lockman trace positive endpoint firm. No effusion.. A lateral post was used for stressing the knee. No tourniquet was applied. DVT prophylaxis intraoperatively with foot pumps. Postoperatively with early mobility. A laryngeal mask anesthetic was administered. Prior to start of the operation 1% lidocaine with epinephrine was injected into the knee joint, fat pad and portal sites. Prior arthroscopic portals were utilized. Inferolateral viewing portal. Superior lateral outflow portal and inferomedial working portal. Diagnostic arthroscopy was performed. There are no pathology in the suprapatellar pouch. The articular surface of the patella were normal except for some midgrade chondrosis on the medial facet of the patella. Some frayed cartilage is noted there and this was debrided with the shaver. The trochlea was normal lateral gutter normal. Some scarring in the anterolateral knee was debrided. ACL graft normal with excellent tension and position. PCL normal. Lateral compartment showed normal articular surfaces posterior lateral compartment popliteus lateral meniscus and tibial plateau. Lateral tibial plateau showed minor softening. Meniscal root is intact. Posterior medial compartment normal. Tibial plateau showed grade 1 chondrosis medially. Medial femoral condyle showed 1.53 cm entire weightbearing area grade 2 and perhaps grade 3 chondrosis. Chondroplasty performed abundant soft fibrillated and fissured cartilage. Patient had identified the source block preoperatively which was just in front of the medial epicondyle. I palpated that area and this was a overlying the medial gutter. There was a area of scar tissue located here and perhaps the formation of a plica. This was thoroughly debrided. The medial gutter otherwise was normal. In the medial compartments evidence of prior partial medial meniscectomy was noted there was a complex tear of the body of the meniscus small in size but defendant but definitely torn. This was debrided with a basket forceps and a motorized shaver back to a stable well-balanced and contoured rim. The prior meniscectomy had left the upper leaflet thin and I trimmed this back some to prevent any further re-tearing. Meniscus was probed extensively. The posterior medial compartment was explored there were no loose bodies. Arthroscopic instruments were removed from the knee. The orthoscopic instruments removed from the knee. The portals were closed with 4-0 nylon. The leg was cleaned with wet and dry sponges. A soft sterile dressing was applied. Patient was awakened from anesthesia without difficulty and taken to recovery in stable condition. There were no specimens or complications. Counts were correct at the case. Blood loss was minimal. At the conclusion of the operation I spoke to the patient's family and informed them of my findings. Detailed postoperative instructions were given. The patient will be rehabilitated according to the partial medial meniscectomy protocol. The patient will begin aspirin for DVT prophylaxis the morning after surgery. He will begin his Plavix tomorrow as well. I attest to the content of the Intraoperative Record and any orders documented therein. Any exceptions are noted below.
--- NOTE | 2017-12-17 18:07 | Discharge Instructions ---
Discharge Instructions Date of Service Dec 17, 2017. Visit Reason for Visit: Right Knee Medial Meniscus Tear, Chondrosis Discharge Discharge Diagnosis / Problem: right knee medial meniscus tear, chondrosis Discharge Goals Goal(s): Decrease discomfort, Improve function, Increase independence Medications Stopped Medications Name(s): Plavix and asa, last dose 12/11/17 Restart Stopped Medication(s): Start aspirin 325 mg twice daily tomorrow morning (12/18/2017) Resume your Plavix on 12/18/2017. Activity Recommendations Activity Limitations: per Instructions/Follow-up section Weightbearing Status: Left weightbearing (as tolerated), Right weightbearing ( as tolerated) Anesthesia . Post Anesthesia Instructions: If you have had General Anesthesia or IV Sedation: * Do not drive today. * Resume driving when surgeon permits. * Do not make important decisions or sign legal documents today. * Call surgeon for: 1. Temperature elevations greater than 101 degrees F. 2. Uncontrollable pain. 3. Excessive bleeding. 4. Persistent nausea and vomiting. 5. Medication intolerance (nausea, vomiting or rash). * For nausea and vomiting use only clear liquids such as: tea, soda, bouillon until nausea subsides, then gradually increase diet as tolerated. * If you have any concerns or questions, call your surgeon's office. If physician is unavailable and it is an emergency, call 911 or go to the nearest emergency room. . Instructions / Follow-Up Instructions / Follow-Up The following are instructions to follow after your Arthroscopic Knee Surgery. ACTIVITY RECOMMENDATIONS: * Minimize activity until your first visit after surgery. * No excessive walking, jogging, sports or laboring. * Return to activity is individualized. Most patients are able to return to every day activities within one month. * Return to sports or intensive labor usually occurs at 2-3 months. * Driving is not permitted until at least your first postoperative visit at a minimum. Please ask your doctor when it is safe to resume driving. If you have an automatic vehicle and your left leg has been operated on, then you may begin driving as soon as you are comfortable and can drive safely. SCHOOL/WORK RECOMMENDATIONS: * You may return to sedentary work or school when you are feeling more comfortable. This is usually 3-7 days after surgery. * Expect increased discomfort with increased activity. Continue to elevate and ice the leg as much as possible. MEDICATIONS: * You will have a prescription for pain medication and an anti-inflammatory medication after surgery. * Use the pain medication for severe pain and the anti-inflammatory for less severe pain. Once the pain medication has run out, try to use the anti-inflammatory medication. If this is not effective, contact the office for assistance. * The pain medication may cause nausea, constipation and drowsiness. You should see how they affect you before driving or similar activity. * The anti-inflammatory medication may cause stomach upset and bleeding. If this occurs let your doctor know immediately . * Take a stool softener like Colace or a laxative like Senokot to prevent constipation. DIET: * Resume previous diet. SPECIAL CARE: ICE: You have the option of an ice cooler, gel packs or ice bags. * If you have an ice cooler, refer to the instructions for that device. The ice cooler may be used continuously. * If you do not have an ice cooler, you will need to use ice bags or gel packs. Do not apply ice directly to the skin. Use a thin dressing or romi shirt between the skin and ice bag. Apply ice for 20-30 minutes and repeat every 2-4 hours. This is especially important for the first 7-10 days after surgery. Once the pain improves, use ice as needed. ELEVATION: * Keep your leg elevated at or above the level of your heart as much as possible. * Expect some increased discomfort and swelling if you are standing for any length of time. * When lying down, avoid placing anything under your knee. Rather, prop your leg up by placing several pillows under your heel or calf. DRESSING: * Your dressing will be changed at your first therapy appointment approximately 4-5 days after surgery. Band-aids, tape strips or gauze may be applied. You may then change your dressing daily. * Reapply dressing followed by the Tony wrap or Tubi-levee superintendent stockinet and EBIce cooling pad (if chosen). * Always wash your hands prior to touching the incision area. * Once the stitches are removed, you may leave the wound open to air or cover with an Tony wrap or Tubi-levee superintendent stockinet. * If you have been given a white elastic stocking (NERI hose), wear as much as possible for the first 1-3 weeks depending on swelling. * Expect some bloody drainage for the first few days after surgery. * Leave the tape strips, if present, in place for 5-7 days. * Band-aids and gauze may be changed daily. CRUTCHES: * You will need to use crutches after surgery. * You may gradually progress to full weight bearing as tolerated and wean off the crutches unless otherwise advised. * Your therapist can provide assistance weaning off crutches. * Patients who have a microfracture done may need to be toe-touch weight- bearing for 4-6 weeks. BATHING: * You may shower or sponge-bathe immediately after surgery. * The dressing will need to be covered with a plastic bag or plastic wrap until the dressing is changed on the fourth or fifth day after surgery. * Once the dressing has been changed on the fourth or fifth day after surgery, you may shower and get the incision wet. * Wash with regular soap and water. * Do not bathe (submerge the incision), soak, swim or use a hot tub until the incision is completely healed over with normal skin and the doctor has given the OK to proceed. * There is no need to apply any ointments, powders or salves to your incision. * Do not apply alcohol or hydrogen peroxide directly to the incision. * Diluted peroxide (50:50 mixture with sterile saline) may be used to clean dried blood from around the incision area. BRACE: * Bracing is generally not needed after routine Arthroscopic Knee surgery. THERAPY: * You will begin therapy four or five days after surgery. * Organized therapy with the therapist is important for the first 4-6 weeks after surgery. During that time you will attend therapy 1-3 times per week. * You will also need to do daily exercises for range of motion and strength as instructed. PROBLEMS/QUESTIONS: * If you have any problems such as severe pain, numbness, tingling or high fevers or if you have any questions, please contact the office at [phone]. * It is not uncommon to have some numbness and tingling after the surgery especially if you have had a nerve block done. This should gradually improve over the first 1- 2 days. If this persists longer or worsens please contact the office. FOLLOW UP VISIT: * If not already scheduled, please call the office at to schedule a follow-up appointment for 10 days, 6 weeks and 3 months after surgery. *Start physical therapy in 4-5 days for dressing change * Follow-up with Dr. Norman 10-14 days after surgery. * His appointment should be scheduled, please call [phone] to schedule an appointment or confirm appointments. Diet Recommendations Recommended Home Diet: no limitations, resume previous diet Procedures Procedures Performed: chondroplasty, partial medial menisectomy, arthroscopy, scar debridement Pending Studies Studies pending at discharge: no Medical Emergencies . Who to Call and When: Medical Emergencies: If at any time you feel your situation is an emergency, please call 911 immediately. . Non-Emergent Contact Non-Emergency issues call your: Surgeon Call Non-Emergent contact if: temperature is above 101, your pain is not controlled, your pain is worsening, your pain is unusual for you, wound has increased drainage, wound has increased redness, wound has increased pain, you have any medication questions . . "Provider Documentation" section prepared by Yeimi Miguel. . [place] Drug Monitoring Program Search Results: patient reviewed within database, no issues identified
--- NOTE | 2017-12-17 18:10 | [facility] Operative Report ---
Operative Report Operative Date Dec 17, 2017. Pre-Operative Diagnosis Right knee meniscus tear and chondrosis Post-Operative Diagnosis same Procedure(s) Performed Arthroscopic Right Knee Partial Medial Meniscectomy Chondroplasty, and scar tissue debridement Surgeon lucía Onion Tier Surgeon(s) tapan Estimated Blood Loss minimal Findings medial meniscus tear right knee Specimens none Drains None Anesthesia Type General Complication(s) none Disposition no Recovery Room / PACU Indications Patient is a 62-year-old male who presented to our office with complaints of right knee pain. All of his knee pain has been mostly medial. His failed conservative treatment. X-rays showed previous evidence of anterior cruciate ligament reconstruction as well as some mild degenerative joint disease. MRI was obtained and found to have a medial meniscus tear and some chondrosis. Due to his failure of conservative treatment, surgical intervention was discussed. He wished to proceed with surgery. Risks and complications were explained to the patient and informed consent was obtained. Description of Procedure Patient was taken to the operating room and placed under general anesthesia. He was given 900 mg of IV clindamycin for surgical prophylaxis. Timeout was performed. He was prepped and draped in routine sterile fashion. I was present during the entire case, please see Dr. Norman's operative report for further detail. Patient was awakened and transferred to the recovery room in stable condition. I attest to the content of the Intraoperative Record and any orders documented therein. Any exceptions are noted below.
--- NOTE | 2017-12-17 18:35 | Anesthesiology Progress Note ---
Anesthesia Post Op Note Date & Time Dec 17, 2017 at 18:34 Vital Signs Pain Intensity: 0 Vital Signs Past 12 Hours Date Time Temp Pulse Resp B/P (MAP) Pulse Ox O2 Delivery O2 Flow Rate FiO2 12/17/17 18:30 36.8 65 16 122/74 97 Room Air 12/17/17 18:20 65 16 127/71 97 Room Air 12/17/17 18:10 66 16 136/75 99 Oxymask 7 12/17/17 18:00 36.5 73 16 150/88 99 Oxymask 7 12/17/17 15:26 36.6 70 18 159/90 (113) 96 Room Air 12/17/17 12:02 36.6 66 22 159/90 (113) 96 Room Air Notes Mental Status: alert / awake / arousable, participated in evaluation Pt Amnestic to Procedure: Yes Nausea / Vomiting: adequately controlled Pain: adequately controlled Airway Patency, RR, SpO2: stable & adequate BP & HR: stable & adequate Hydration State: stable & adequate Anesthetic Complications: no major complications apparent
[2017-12-17 18:37] VITALS: BP 134/72; PULSE 70; TEMP 37.1; O2SAT 96
[2017-12-17 19:10] VITALS: BP 133/72; PULSE 68; TEMP 37.1; O2SAT 96
== END | disposition home or self-care (01) ==
LOC: X.SURG 11:39
PROVIDERS: ATTEND Physical Medicine & Rehabilitation Sports Medicine
DX: S83.281A Other tear of lateral meniscus, current injury, right knee, initial encounter (principal); M94.261 Chondromalacia, right knee; E78.00 Pure hypercholesterolemia, unspecified; I10 Essential (primary) hypertension; F32.9 Major depressive disorder, single episode, unspecified; F41.9 Anxiety disorder, unspecified; M19.90 Unspecified osteoarthritis, unspecified site; I25.10 Atherosclerotic heart disease of native coronary artery without angina pectoris; I25.2 Old myocardial infarction; M10.9 Gout, unspecified; K21.9 Gastro-esophageal reflux disease without esophagitis; Z88.0 Allergy status to penicillin; Z88.2 Allergy status to sulfonamides; Z79.01 Long term (current) use of anticoagulants; Z88.7 Allergy status to serum and vaccine; Z88.8 Allergy status to other drugs, medicaments and biological substances; Z79.02 Long term (current) use of antithrombotics/antiplatelets; Z95.5 Presence of coronary angioplasty implant and graft; Z95.0 Presence of cardiac pacemaker; X58.XXXA Exposure to other specified factors, initial encounter

== ENCOUNTER 2021-08-26 17:09 | Inpatient (IN) ==
[2021-08-26] MEDS ORDERED: ASPIRIN CHEW 324 MG PO STA (17:22)
[2021-08-26] MEDS ORDERED: SODIUM CHLORIDE 0.9% 1000ML 1,000 ML IV STA (17:22)
[2021-08-26 17:40] LABS: Basophils # (auto) 0.03 K/uL (0-0.2); Basophils % (auto) 0.3 %; Eosinophils # (auto) 0.11 K/uL (0-0.5); Eosinophils % (auto) 0.9 %; Hematocrit (blood only) 44.8 % (42-52); Hemoglobin 15.1 g/dL (14.0-18.0); Immature Granulocytes # (auto) 0.05 K/uL (0.00-0.02); Immature Granulocytes % (auto) 0.4 %; Lymphocytes # (auto) 2.82 K/uL (1.2-3.4); Lymphocytes % (auto) 24.1 %; Mean Corpuscular Hgb Conc 33.7 g/dL (32-36); Mean Platelet Volume 8.9 fL (7.4-10.4); Monocytes # (auto) 0.84 K/uL (0.11-0.59); Monocytes % (auto) 7.2 %; Neutrophils # (auto) 7.86 K/uL (1.4-6.5); Neutrophils % (auto) 67.1 %; Platelet Count 293 K/uL (130-400); RDW Coefficient of Variation 13.6 % (11.5-14.5); RDW Standard Deviation 45.8 fL (36.4-46.3); Red Blood Count 4.87 M/uL (4.7-6.1); White Blood Count 11.71 K/uL (4.8-10.8)
[2021-08-26] MEDS: NITROGLYCERIN SL 0.4 MG/TAB TAB SL PRN ×2 (17:42→17:57)
[2021-08-26 17:46] LABS: BUN Creatinine Ratio 9.6 (10-20); Blood Urea Nitrogen 13 mg/dl (7-18); Calcium 9.2 mg/dl (8.5-10.1); Carbon Dioxide 24 mmol/L (21-32); Chloride 107 mmol/L (98-107); Creatinine Clr Calc Pharmacy 59.7 ml/min; Est GFR (African American) 63.3 ml/min; Est GFR (Non-African American) 54.6 ml/min; Glucose 112 mg/dl (70-99); Lipase 165 U/L (73-393); Potassium 3.9 mmol/L (3.5-5.1); Sodium 139 mmol/L (136-145)
[2021-08-26 17:51] LABS: Troponin I < 0.015 ng/ml (0-0.045)
[2021-08-26 17:52] LABS: D Dimer 380 ug/L FEU (0-500); Partial Thromboplastin Ratio 1.1; Partial Thromboplastin Time 28.2 Seconds (21.0-31.0); Prothrombin Time 10.1 Seconds (9.0-12.0)
--- NOTE | 2021-08-26 18:00 | XRay Report ---
SINGLE VIEW CHEST CLINICAL HISTORY: Atypical chest pain. FINDINGS: An AP, portable, upright chest radiograph is compared to study dated 11/24/2018. The heart a ppears enlarged. The pulmonary vasculature is noncongested. There is mild bibasilar atelectasis. The lungs and pleural spaces are otherwise clear. No pneumothorax is seen. The bony thorax is grossly int act. A left shoulder arthroplasty is in place. IMPRESSION: Cardiac enlargement with no acute cardiopulmonary abnormality identified. ACT 112: Negative or not required by law. Electronically signed by: Vivek Pond M.D. 08/26/2021 5:59 PM
--- NOTE | 2021-08-26 18:05 | Emergency Department Note ---
History of Present Illness General Chief Complaint: Chest Pain Time Seen by Provider: 08/26/21 17:16 History of Present Illness Provider Complaint: chest pain Onset (ago): week(s) Onset (Weeks): 1 Duration: intermittent Onset: during rest Pain Location: substernal and left chest Pain Radiation: none Maximum Pain Intensity: 2 Current Pain Intensity: 8 Quality: + sharp Relieved By: + nothing Exacerbated By: + nothing Context: no recent illness, no recent surgery, no recent immobilization, no recent travel, no trauma/injury, no new medications or no history of DVT/PE Associated symptoms: + dyspnea; no nausea, no vomiting, no diaphoresis, no syncope, no palpitations, no fever, no cough or no leg swelling Home Medications Medication Instructions Recorded Confirmed Type acetaminophen 325 mg tablet 325 mg PO QID PRN 11/24/18 08/26/21 History (Tylenol) allopurinol 300 mg tablet 300 mg PO QPM 11/24/18 08/26/21 History aspirin 81 mg tablet,delayed 81 mg PO QPM 11/24/18 08/26/21 History release clopidogrel 75 mg tablet 75 mg PO QPM 11/24/18 08/26/21 History escitalopram oxalate 20 mg tablet 20 mg PO QPM 11/24/18 08/26/21 History (Lexapro) ezetimibe 10 mg tablet 10 mg PO QPM 11/24/18 08/26/21 History nitroglycerin 0.4 mg sublingual 0.4 mg SUBLINGUAL UD PRN 11/24/18 08/26/21 History tablet lisinopril 10 mg tablet 10 mg PO QPM 08/26/21 08/26/21 History Allergies Allergy/AdvReac Type Severity Reaction Status Date / Time azithromycin Allergy Intermediate Hives Verified 08/26/21 18:04 Penicillins Allergy Intermediate HIVES Verified 08/26/21 18:04 Sulfa (Sulfonamide Allergy Intermediate HIVES Verified 08/26/21 18:04 Antibiotics) tetanus toxoid, adsorbed Allergy Intermediate swelling Verified 08/26/21 18:04 simvastatin AdvReac Intermediate MUSCLE PAIN Verified 08/26/21 18:04 Past Med/Surg History Medical History (Updated 08/26/21 @ 23:34 by Serafin Pastor) Back pain Chaves esophagus CAD (coronary artery disease) "Nov 2010- PALLAVI to RCA April 2015- bare metal stent x2 to RCA in April 2015" COPD (chronic obstructive pulmonary disease) Depression Diverticulitis Dyslipidemia Esophageal stricture GI bleed Gout Hiatal hernia Hypertension Kidney stone Sleep apnea "non compliant with CPAP" Tobacco abuse disorder Upper GI bleed Surgical History H/O arthroscopy of knee H/O colonoscopy History of Wei fundoplication Hx of cholecystectomy S/P coronary artery stent placement Family History Other Cancer Diabetes Gallbladder disease Heart disease Social History Smoking Status: Current every day smoker Tobacco Type: Cigarettes Cigarettes Per Day: 20; Do You Dip or Chew Tobacco: No; Hx Alcohol Use: No Hx Substance Use: No Preferred Language: Turkish Communication Ability: Effective Commodities Trader Required: No Beliefs That Will Affect Care: None marital status: Current Living Situation: Spouse current occupational status: employed Other Information That Helps Us Care for You: No Feels Safe at Home: Yes Safety Concerns: Feels Safe At This Time Assistive Devices: None Review of Systems A total of 10 systems reviewed and were otherwise negative Physical Exam Vital Signs Vital Signs - 24 hr 08/26/21 17:18 08/26/21 17:24 08/26/21 17:30 Temperature 36.6 C Temperature Source Oral Pulse Rate 68 72 70 Pulse Rate from SpO2 Sensor 72 70 Pulse Rhythm Regular Pulse Strength Normal Respiratory Rate 20 19 19 Respiratory Effort / Characteristics Non-Labored Respiratory Depth Normal Respiratory Pattern Regular Blood Pressure 172/96 H 165/96 H Blood Pressure Mean 121 119 Blood Pressure Position Lying Pulse Oximetry 92 92 90 Oxygen Delivery Method Room Air Oxygen Flow Rate Sepsis Recent Fever Within 48 Hours No Sepsis New/Unexplained Change in Mental Status No Sepsis Action Taken by Nursing No Action Required 08/26/21 17:48 08/26/21 17:50 08/26/21 17:59 Temperature Temperature Source Pulse Rate Pulse Rate from SpO2 Sensor Pulse Rhythm Pulse Strength Respiratory Rate Respiratory Effort / Characteristics Respiratory Depth Respiratory Pattern Blood Pressure Blood Pressure Mean Blood Pressure Position Pulse Oximetry 89 L 94 Oxygen Delivery Method Room Air Room Air Nasal Cannula Oxygen Flow Rate 2 Sepsis Recent Fever Within 48 Hours Sepsis New/Unexplained Change in Mental Status Sepsis Action Taken by Nursing 08/26/21 18:00 08/26/21 18:30 08/26/21 19:00 Temperature Temperature Source Pulse Rate 70 60 60 Pulse Rate from SpO2 Sensor 70 61 60 Pulse Rhythm Pulse Strength Respiratory Rate 19 17 14 Respiratory Effort / Characteristics Respiratory Depth Respiratory Pattern Blood Pressure 171/89 H 132/76 138/74 Blood Pressure Mean 116 94 95 Blood Pressure Position Pulse Oximetry 94 96 97 Oxygen Delivery Method Nasal Cannula Nasal Cannula Oxygen Flow Rate 2 2 Sepsis Recent Fever Within 48 Hours Sepsis New/Unexplained Change in Mental Status Sepsis Action Taken by Nursing Physical Exam GENERAL: He is oriented to person, place, and time. He appears well-developed and well-nourished. He does not appear distressed. HENT: Exam performed. - Head: Normocephalic and atraumatic. - Right Ear: External ear normal. No mastoid tenderness. - Left Ear: External ear normal. No mastoid tenderness. - Mouth/Throat: The oropharynx is clear and moist. No trismus in the jaw. No dental abscesses or uvula swelling. No oropharyngeal exudate or tonsillar abscesses. EYES: Conjunctivae and EOM are normal. Pupils are equal, round, and reactive to light. Right eye exhibits no discharge. Left eye exhibits no discharge. No scleral icterus. NECK: Normal range of motion. Neck supple. No JVD present. No spinous process tenderness present. No carotid bruit present. No rigidity. No tracheal deviation and normal range of motion present. No Brudzinski's sign and no Kernig's sign noted. CV: Normal rate, regular rhythm, normal heart sounds and intact distal pulses. There is no peripheral edema. Palpable radial pulses bue. PULM/CHEST: Effort normal and breath sounds normal. No respiratory distress. No stridor. He has no wheezes. He has no rales. - Chest Wall: He exhibits no tenderness. ABD: The abdomen is soft. Bowel sounds are normal. He has no distension. No mass is present. There is no tenderness. There is no rebound, no guarding, no Foley's sign and no tenderness at McBurney's point. Rovsig negative. MUSC/SKEL: Normal range of motion. There is no peripheral edema, tenderness or deformity. LYMPH: No cervical adenopathy. NEURO: He is alert and oriented to person, place, and time. He has normal strength. No cranial nerve deficit or sensory deficit. Coordination and gait normal. GCS eye subscore is 4. GCS verbal subscore is 5. GCS motor subscore is 6. Cerebellar tests wnl. SKIN: Skin is warm and dry. He is not diaphoretic. PSYCH: He has a normal mood and affect. Behavior is normal. Judgment and thought content normal. Course Course 171: The patient was evaluated in room C11. A complete history and physical exam was performed Cardiac monitoring: An order was placed for continuous cardiac monitoring. The monitor shows a rate of 70 with sinus rhythm 1930: Vital signs stable. Labs and imaging within normal limits. Patient did become hypoxic in the emergency department. Oxygen saturation improved with 2 L nasal cannula. Patient does not wear oxygen normally. On reauscultation the lungs are clear bilaterally, no wheezes rales or rhonchi. Patient reports his chest pain resolved after receiving two sublingual nitroglycerin in the emergency department. Given that his patient resolved with two sublingual nitro, has hypoxia, and his history of coronary artery disease, the patient be admitted to the [facility] service for rule out ACS. Dr. Wolf notified. Administered Medications Nitroglycerin (Nitroglycerin Sl 0.4 Mg/Tab Tab) 0.4 mg SL UD PRN PRN Reason: Chest Pain Stop: 09/25/21 17:21 Last Admin: 08/26/21 17:57 Dose: 0.4 mg Documented by: [id number] Admin: 08/26/21 17:42 Dose: 0.4 mg Documented by: [id number] Discontinued Medications Aspirin (Aspirin Chew 324 Mg) 324 mg PO NOW STA Stop: 08/26/21 17:23 Last Admin: 08/26/21 17:32 Dose: Not Given Documented by: [id number] Sodium Chloride (Nss 1000ml) 1,000 mls @ 999 mls/hr IV .Q1H1M STA Stop: 08/26/21 18:22 Last Infusion: 08/26/21 18:43 Dose: 0 mls/hr Documented by: [id number] Admin: 08/26/21 17:42 Dose: 999 mls/hr Documented by: [id number] Ioversol (Optiray 320 125ml) 119 ml IV ONCE ONE Stop: 08/26/21 18:16 Last Admin: 08/26/21 18:15 Dose: 119 ml Documented by: [id number] Medical Decision Making Laboratory Data Result diagrams: 08/26/21 17:18 08/26/21 17:18 Labs: Lab Results 08/26/21 08/26/21 08/26/21 Range/Units 15:30 15:30 17:18 WBC 11.71 H (4.8-10.8) K/uL RBC 4.87 (4.7-6.1) M/uL Hgb 15.1 (14.0-18.0) g/dL Hct 44.8 (42-52) % MCV 92.0 (80-100) fL MCH 31.0 (25-34) pg MCHC 33.7 (32-36) g/dL RDW Std Deviation 45.8 (36.4-46.3) fL RDW Coeff of Marysol 13.6 (11.5-14.5) % Plt Count 293 (130-400) K/uL MPV 8.9 (7.4-10.4) fL Immature Gran % (Auto) 0.4 % Neut % (Auto) 67.1 % Lymph % (Auto) 24.1 % Cooper % (Auto) 7.2 % Eos % (Auto) 0.9 % Baso % (Auto) 0.3 % Neut # (Auto) 7.86 H (1.4-6.5) K/uL Lymph # (Auto) 2.82 (1.2-3.4) K/uL Cooper # (Auto) 0.84 H (0.11-0.59) K/uL Eos # (Auto) 0.11 (0-0.5) K/uL Baso # (Auto) 0.03 (0-0.2) K/uL Immature Gran # (Auto) 0.05 H (0.00-0.02) K/uL PT (9.0-12.0) Seconds INR (0.9-1.1) APTT (21.0-31.0) Seconds PTT Ratio D-Dimer (0-500) ug/L FEU Sodium (136-145) mmol/L Potassium (3.5-5.1) mmol/L Chloride (98-107) mmol/L Carbon Dioxide (21-32) mmol/L Anion Gap (3-11) BUN (7-18) mg/dl Creatinine (0.6-1.4) mg/dl Est Cr Clr Drug Dosing ml/min Est GFR ( Amer) ml/min Est GFR (Non-Af Amer) ml/min BUN/Creatinine Ratio (10-20) Glucose (70-99) mg/dl Calcium (8.5-10.1) mg/dl Troponin I (0-0.045) ng/ml Lipase (73-393) U/L COVID-19 Eval Order Covid19 at [facility] SARS-CoV-2 (PCR) NEGATIVE (Negative) 08/26/21 08/26/21 Range/Units 17:18 17:18 WBC (4.8-10.8) K/uL RBC (4.7-6.1) M/uL Hgb (14.0-18.0) g/dL Hct (42-52) % MCV (80-100) fL MCH (25-34) pg MCHC (32-36) g/dL RDW Std Deviation (36.4-46.3) fL RDW Coeff of Marysol (11.5-14.5) % Plt Count (130-400) K/uL MPV (7.4-10.4) fL Immature Gran % (Auto) % Neut % (Auto) % Lymph % (Auto) % Cooper % (Auto) % Eos % (Auto) % Baso % (Auto) % Neut # (Auto) (1.4-6.5) K/uL Lymph # (Auto) (1.2-3.4) K/uL Cooper # (Auto) (0.11-0.59) K/uL Eos # (Auto) (0-0.5) K/uL Baso # (Auto) (0-0.2) K/uL Immature Gran # (Auto) (0.00-0.02) K/uL PT 10.1 (9.0-12.0) Seconds INR 1.0 (0.9-1.1) APTT 28.2 (21.0-31.0) Seconds PTT Ratio 1.1 D-Dimer 380 (0-500) ug/L FEU Sodium 139 (136-145) mmol/L Potassium 3.9 (3.5-5.1) mmol/L Chloride 107 (98-107) mmol/L Carbon Dioxide 24 (21-32) mmol/L Anion Gap 7.0 (3-11) BUN 13 (7-18) mg/dl Creatinine 1.36 (0.6-1.4) mg/dl Est Cr Clr Drug Dosing 59.7 ml/min Est GFR ( Amer) 63.3 ml/min Est GFR (Non-Af Amer) 54.6 ml/min BUN/Creatinine Ratio 9.6 L (10-20) Glucose 112 H (70-99) mg/dl Calcium 9.2 (8.5-10.1) mg/dl Troponin I < 0.015 (0-0.045) ng/ml Lipase 165 (73-393) U/L COVID-19 Eval Order SARS-CoV-2 (PCR) (Negative) Imaging Data Chest x-ray: Radiologist's impression: SINGLE VIEW CHEST CLINICAL HISTORY: Atypical chest pain. FINDINGS: An AP, portable, upright chest radiograph is compared to study dated 11/24/2018. The heart appears enlarged. The pulmonary vasculature is noncongested . There is mild bibasilar atelectasis. The lungs and pleural spaces are otherwise clear. No pneumothorax is seen. The bony thorax is grossly intact. A left shoulder arthroplasty is in place. IMPRESSION: Cardiac enlargement with no acute cardiopulmonary abnormality identified. ACT 112: Negative or not required by law. Electronically signed by: Vivek Pond M.D. 08/26/2021 5:59 PM Dictated:[id number] Transcribed: 08/26/[id number] CT scan - chest: Radiologist's impression: CT ANGIOGRAM OF THE CHEST CLINICAL HISTORY: Dyspnea. Atypical chest pain. COMPARISON STUDY: Chest CT dated 11/30/2014. Chest x-ray dated 08/26/2021. TECHNIQUE: Following the IV administration of 119 cc of Optiray 320, CT angiogram of the chest was performed from the upper abdomen to the thoracic inlet utilizing the pulmonary embolus protocol. Images are reviewed in the axial, sagittal, and coronal planes. 3-D MIPS images are created and assessed. IV contrast was administered without complication. A dose lowering technique was utilized adhering to the principles of ALARA. CT DOSE: 522.68 mGy.cm FINDINGS: Thyroid: Imaged portions of the thyroid gland are normal in size and attenu ation. Thoracic aorta: There is mild atherosclerotic calcification of the thoracic aorta, which is normal in caliber and demonstrates standard 3-vessel arch anatomy. No dissection is seen. Pulmonary vasculature: The pulmonary trunk is normal in caliber. There are no filling defects identified in main, lobar, or segmental pulmonary branches to suggest pulmonary embolus. Heart: The heart is normal in size and without pericardial effusion. The coronary arteries are densely calcified. Lungs and pleural spaces: Emphysematous change is noted. There is no airspace consolidation typical for pneumonia or pleural effusion. Dependent atelectasis is seen at the lung bases, and there is mild diffuse subpleural reticulation. The trachea and central airways are clear. Diffuse peribronchial thickening is observed. Mediastinum: Mildly enlarged prevascular nodes measure up to 11 mm in short axis. These are unchanged dating back to 2014. Yamila: Mildly enlarged hilar nodes measure up to 11 mm in short axis. Axillae: There is no axillary lymphadenopathy. Upper abdomen: Cholecystectomy clips are noted. There is a small hiatal hernia. Wall thickening is noted in the distal esophagus. Skeletal structures: No lytic or blastic bony lesions are seen. A left shoulder arthroplasty is in place. IMPRESSION: 1. There is no evidence of pulmonary embolus in the main, lobar, or segmental pulmonary arteries. 2. Cardiomegaly and emphysema. 3. There is no airspace consolidation or pleural effusion. 4. Diffuse peribronchial thickening suggests bronchitis/reactive airway disease. Clinical correlation will be required. 5. Mildly enlarged mediastinal and hilar nodes are nonspecific and not signific antly changed dating back to 2014. 6. Circumferential wall thickening is suggested in the mid to distal esophagus. Correlate clinically for evidence of esophagitis. 7. Additional findings as above. ACT 112: Negative or not required by law. Electronically signed by: Vivek Pond M.D. 08/26/2021 6:52 PM Dictated:[id number] Transcribed: 08/26/[id number] ECG Data Indication: chest pain Rate (beats per minute): 66 Rhythm: normal sinus Findings: no ST depression, no ST elevation or no prolonged QT MDM Narrative Vital signs stable. Labs and imaging within normal limits. Patient did become hypoxic in the emergency department. Oxygen saturation improved with 2 L nasal cannula. Patient does not wear oxygen normally. On reauscultation the lungs are clear bilaterally, no wheezes rales or rhonchi. Patient reports his chest pain resolved after receiving two sublingual nitroglycerin in the emergency department. Given that his patient resolved with two sublingual nitro, has hypoxia, and his history of coronary artery disease, the patient be admitted to the [facility] service for rule out ACS. Dr. Wolf notified. Impression & Plan Chest pain Discharge Plan Visit Data Chief Complaint: Chest Pain ED Provider: Serafin Pastor Discharge Problem: Chest pain Patient Disposition: Admitted As Inpatient Discharge Instructions Interventions: ED Discharge Assessment Last Done: 08/26/21 21:26
[2021-08-26] MEDS ORDERED: OPTIRAY 320 125ml IV ONE (18:15)
--- NOTE | 2021-08-26 18:53 | CT Scan Report ---
CT ANGIOGRAM OF THE CHEST CLINICAL HISTORY: Dyspnea. Atypical chest pain. COMPARISON STUDY: Chest CT dated 11/30/2014. Chest x-ray dated 08/26/2021. TECHNIQUE: Following the IV administration of 119 cc of Optiray 320, CT angiogram of the chest was pe rformed from the upper abdomen to the thoracic inlet utilizing the pulmonary embolus protocol. Images are reviewed in the axial, sagittal, and coronal planes. 3-D MIPS images are created and assessed. I V contrast was administered without complication. A dose lowering technique was utilized adhering to the principles of ALARA. CT DOSE: 522.68 mGy.cm FINDINGS: Thyroid: Imaged portions of the thyroid gland are normal in size and attenuation. Thoracic aorta: There is mild atherosclerotic calcification of the thoracic aorta, which is normal in caliber and demonstrates standard 3-vessel arch anatomy. No dissection is seen. Pulmonary vasculature: The pulmonary trunk is normal in caliber. There are no filling defects identif ied in main, lobar, or segmental pulmonary branches to suggest pulmonary embolus. Heart: The heart is normal in size and without pericardial effusion. The coronary arteries are densel y calcified. Lungs and pleural spaces: Emphysematous change is noted. There is no airspace consolidation typical f or pneumonia or pleural effusion. Dependent atelectasis is seen at the lung bases, and there is mild diffuse subpleural reticulation. The trachea and central airways are clear. Diffuse peribronchial thi ckening is observed. Mediastinum: Mildly enlarged prevascular nodes measure up to 11 mm in short axis. These are unchanged dating back to 2014. Yamila: Mildly enlarged hilar nodes measure up to 11 mm in short axis. Axillae: There is no axillary lymphadenopathy. Upper abdomen: Cholecystectomy clips are noted. There is a small hiatal hernia. Wall thickening is no corby in the distal esophagus. Skeletal structures: No lytic or blastic bony lesions are seen. A left shoulder arthroplasty is in pl cindy. IMPRESSION: 1. There is no evidence of pulmonary embolus in the main, lobar, or segmental pulmonary arteries. 2. Cardiomegaly and emphysema. 3. There is no airspace consolidation or pleural effusion. 4. Diffuse peribronchial thickening suggests bronchitis/reactive airway disease. Clinical correlation will be required. 5. Mildly enlarged mediastinal and hilar nodes are nonspecific and not significantly changed dating b ack to 2014. 6. Circumferential wall thickening is suggested in the mid to distal esophagus. Correlate clinically for evidence of esophagitis. 7. Additional findings as above. ACT 112: Negative or not required by law. Electronically signed by: Vivek Pond M.D. 08/26/2021 6:52 PM
[2021-08-26] MEDS ORDERED: MoRPHine SULFATE 2 MG/ML CARP IV STA (19:18)
[2021-08-26] MEDS ORDERED: POLYETHYLENE (MIRALAX) 17 GM PACK PO PRN (23:13)
[2021-08-26] MEDS ORDERED: ONDANSETRON INJ 2 MG/ML 2 ML VIAL IV PRN (23:13)
[2021-08-26] MEDS ORDERED: lisinopril 10 MG TAB PO SCH (23:13)
[2021-08-26] MEDS ORDERED: NITROGLYCERIN SL 0.4 MG/TAB TAB SL PRN ×2 (23:13)
--- NOTE | 2021-08-26 23:55 | History and Physical Report ---
DATE OF ADMISSION: 08/26/2021. CHIEF COMPLAINT: Chest pain. HISTORY OF PRESENT ILLNESS: A 66-year-old male with past medical history significant for hyperlipidemia, gout, prediabetes, COPD, chronic sleep apnea, chronic ischemic heart disease, Chaves esophagus, sensorineural hearing loss, bilateral, lumbar radiculopathies, psoriasis, tobacco abuse disorder, history of cardiac stent, depression, anxiety. The patient currently presents with chest pain. The patient says since last 1 week he is having on and off chest pain in one spot in the lower part of the left chest below his nipple area radiating to his back, but today it got worse, which prompted him to come to the hospital. The patient says that when he is at rest the pain is better, when he ambulates the pain comes back, and associated with some sweating, nausea and shortness of breath. Denies any cough, no fever, no chills, no headache, no runny nose, no sore throat. Appetite is okay. No difficulty swallowing. Currently, no abdominal pain. Normal bowel and bladder movements. No rash. ALLERGIES: AZITHROMYCIN, PENICILLIN, SULFA, TETANUS, SIMVASTATIN. PAST MEDICAL HISTORY: As mentioned above. PAST SURGICAL HISTORY: Left wound debridement, cardiac catheterization, colonoscopy, cystoscopy with biopsy, incision and drainage, EGDs, esophagogastric fundoplasty, knee arthroscopy, laparoscopic cholecystectomy, lumbar hemilaminectomy, partial colectomy with anastomosis, left arthroplasty of the shoulder, cataract surgery, right heart catheterization. MEDICATIONS: The patient is on Tylenol 325 mg p.o. q.i.d. p.r.n., allopurinol 300 mg p.o. a.m., aspirin 81 mg p.o. a.m., Plavix 75 mg p.o. a.m., Lexapro 20 mg p.o. a.m., ezetimibe 10 mg p.o. daily, lisinopril 10 mg p.o. daily, nitroglycerin 0.4 mg sublingual p.r.n. FAMILY HISTORY: Significant for father had cancer, mother has valvular heart disease, brother has heart disease. SOCIAL HISTORY: . Smokes 1 pack a day. No alcohol, no drug use. REVIEW OF SYSTEMS: As per HPI. Rest of the review of systems is negative. PHYSICAL EXAMINATION: GENERAL: The patient is of moderate build, not in acute distress. VITAL SIGNS: Temperature 36.6, pulse 60, respiratory rate 19, blood pressure 136/71, oxygen 97% on 2 liters. HEENT: Pupils equal, round, and reactive to light. Oral mucosa moist. NECK: No JVD. No neck masses. CARDIOVASCULAR: S1 and S2 heard. Regular rate and rhythm. No murmur, no gallop. RESPIRATORY SYSTEM: Normal AP diameter. No accessory muscle use. No wheezing, no crackles. ABDOMEN: Soft, bowel sounds present, nontender, no distention. CENTRAL NERVOUS SYSTEM: Cranial nerves II-XII grossly intact, nonfocal. EXTREMITIES: No edema, no erythema. LABORATORY DATA: WBC 11.7, hemoglobin 15.1, hematocrit 44.8, platelets 293. PT 10.1, INR 1, APTT 28.2. D-dimer 380. Sodium 139, potassium 3.9, chloride 107, bicarbonate 24, BUN 13, creatinine 1.3, serum glucose 112, calcium 9.2. Troponin I less than 0.015. Lipase 165. SARS-CoV-2 PCR negative. IMAGING DATA: CTA of the chest, no evidence of pulmonary embolism, cardiomegaly and emphysema. No airspace consolidation, pleural effusion. Diffuse peribronchial thickening/bronchitis, reactive airway disease. Circumferential wall thickening suggested in the mid to distal esophagus, correlate clinically for evidence of esophagitis. Chest x-ray, no acute findings. EKG: Normal sinus rhythm at a rate of 66, no significant change was found. ASSESSMENT AND PLAN: This is a 66-year-old male who presents with chest pain. 1. Chest pain on one spot below the right nipple region, point tenderness present, but the patient has a history of coronary artery disease, smoking, hypertension. Will monitor in the [employer], serial enzymes, echo. N.p.o. after midnight. Consult cardiology in the a.m. for further recommendations. 2. History of coronary artery disease: Status post stent. Continue aspirin, Plavix, ezetimibe. 3. Depression: Continue Lexapro. 4. Gout: Continue allopurinol. 5. Hypertension: Continue lisinopril. Will monitor the blood pressure. 6. Tobacco abuse: Needs counseling. 7. Deep venous thrombosis prophylaxis: Sequential compression devices for now. DISPOSITION: Observation in [employer]. PT/OT prior to discharge. Social service to help with discharge planning. Level 1 full code. Job ID: [id number] MTDD
[2021-08-27] MEDS: EZETIMIBE 10 MG TABLET PO SCH ×2 (00:43→21:12)
[2021-08-27] MEDS: PANTOprazole 40 MG in SYRINGE 0 ML IV SCH ×3 (00:43→21:13)
[2021-08-27] MEDS: allopurinoL 300 MG TAB PO SCH ×2 (00:44→21:13)
[2021-08-27] MEDS: CLOPIDOGREL BISULFATE 75 MG TAB PO SCH ×2 (00:44→21:12)
[2021-08-27] MEDS: ASPIRIN 81 MG ECTAB PO SCH ×2 (00:44→21:13)
[2021-08-27] MEDS: ESCITALOPRAM OXALATE 20 MG TAB PO SCH ×2 (00:44→21:12)
[2021-08-27 06:13] LABS: Basophils # (auto) 0.05 K/uL (0-0.2); Basophils % (auto) 0.5 %; Eosinophils # (auto) 0.19 K/uL (0-0.5); Eosinophils % (auto) 1.7 %; Hematocrit (blood only) 45.4 % (42-52); Hemoglobin 14.9 g/dL (14.0-18.0); Immature Granulocytes # (auto) 0.03 K/uL (0.00-0.02); Immature Granulocytes % (auto) 0.3 %; Lymphocytes # (auto) 1.98 K/uL (1.2-3.4); Lymphocytes % (auto) 17.9 %; Mean Corpuscular Hemoglobin 30.7 pg (25-34); Mean Corpuscular Hgb Conc 32.8 g/dL (32-36); Mean Corpuscular Volume 93.4 fL (80-100); Mean Platelet Volume 9.2 fL (7.4-10.4); Monocytes # (auto) 0.71 K/uL (0.11-0.59); Monocytes % (auto) 6.4 %; Neutrophils # (auto) 8.11 K/uL (1.4-6.5); Neutrophils % (auto) 73.2 %; Platelet Count 279 K/uL (130-400); RDW Coefficient of Variation 13.8 % (11.5-14.5); RDW Standard Deviation 46.9 fL (36.4-46.3); Red Blood Count 4.86 M/uL (4.7-6.1); White Blood Count 11.07 K/uL (4.8-10.8)
[2021-08-27 07:14] LABS: BUN Creatinine Ratio 13.7 (10-20); Blood Urea Nitrogen 12 mg/dl (7-18); C Reactive Protein 0.82 mg/dl (0-0.29); Calcium 9.3 mg/dl (8.5-10.1); Carbon Dioxide 25 mmol/L (21-32); Chloride 109 mmol/L (98-107); Creatinine Clr Calc Pharmacy 89.3 ml/min; Est GFR (African American) 102.9 ml/min; Est GFR (Non-African American) 88.8 ml/min; Glucose 113 mg/dl (70-99); Magnesium 2.3 mg/dl (1.8-2.4); Potassium 4.3 mmol/L (3.5-5.1); Sodium 139 mmol/L (136-145); Troponin I < 0.015 ng/ml (0-0.045)
--- NOTE | 2021-08-27 08:55 | Electrocardiogram Report ---
Test Reason : Blood Pressure : / mmHG Vent. Rate : 066 BPM Atrial Rate : 066 BPM P-R Int : 150 ms QRS Dur : 092 ms QT Int : 404 ms P-R-T Axes : 063 080 064 degrees QTc Int : 423 ms Normal sinus rhythm Normal ECG When compared with ECG of 24-NOV-2018 10:06, No significant change was found Confirmed by Marty Rivera ([id number]) on 08/27/2021 8:55:28 AM Referred By: REFERRED SELF Confirmed By:Tito Rivera
--- NOTE | 2021-08-27 09:05 | Electrocardiogram Report ---
Test Reason : Blood Pressure : / mmHG Vent. Rate : 055 BPM Atrial Rate : 055 BPM P-R Int : 160 ms QRS Dur : 094 ms QT Int : 434 ms P-R-T Axes : 064 075 061 degrees QTc Int : 415 ms Poor data quality, interpretation may be adversely affected Sinus bradycardia Otherwise normal ECG When compared with ECG of 26-AUG-2021 17:16, (unconfirmed) No significant change was found Confirmed by Marty Rivera ([id number] on 08/27/2021 9:04:30 AM Referred By: REFERRED SELF Confirmed By:Tito Rivera
--- NOTE | 2021-08-27 13:04 | Cardiology Consultation ---
Date of Consultation August 27, 2021 Assessment & Plan (1) Chest pain: (2) Hypertension: (1) Chest pain: -The patient presents with chest discomfort that seems atypical in character for angina, and seems to be exacerbated by movement of his left upper arm shoulder, with having had shoulder surgery 9 months ago. -He does however have a history of coronary heart disease, as outlined above. It is reassuring that he has had nonischemic EKG tracings on arrival and again this morning. Serial troponin I levels have been undetectable. After further discussion with the patient, plan was to proceed with an exercise stress echocardiogram. His blood pressure however was prohibitively high. When he arrived over at the stress test that, his blood pressure was 212/91. He had his p.m. lisinopril dose last evening. His blood pressure as an outpatient and recently been poorly controlled, attempts have been made for adjustments including addition of amlodipine, but he did not tolerate this due to side effect of fatigue. Stress test has been canceled due to his high blood pressure. I would transfer him back to the telemetry unit, advance his diet, and adjust his antihypertensives. I do not think his discomfort is due to hypertensive urgency, it still sounds like it may be musculoskeletal in etiology. But his blood pressure of around and then over 200 mmHg, precludes exercise stress echocardiogram. (2) Hypertension: Give Pm dose of lisinopril early, along with a dose of IV Vasotec. Increase lisinopril to 20 mg in am tomorrow. Add HCTZ tomorrow. Not a candidate for AV diandra blockers at HR in 50s at baseline. Did not tolerate amlodipine in past due to subjective fatigue. History of Present Illness Attending Physician: Arlin Kenney MD History of Present Illness Mr Simons is a 66 year old male seen in cardiology consultation per the request of Dr Wolf for the evaluation of chest pain. Patient follows with Dr Mills and Mr Mercado of our practice as an outpatient. Patient describes recently having left sided chest pains. They feel like twinges, and an electrical feeling in his axilla. He does not feel this with aerobic exertion. He feels like it is related to movement of his shoulder. 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 At the time my assessment, he was free of chest discomfort. At the time his most recent ischemic work-up in 2016 he had undergone an exercise stress echocardiogram with symptoms of chest tightness reproduced having achieved just over 6 minutes on Lito protocol, with abnormal upsloping ST segment depression with exercise, and ST changes that persisted into the post exercise recovery interval with horizontal and downsloping ST depression noted late in the recovery interval. He then underwent cardiac catheterization 11/11/2016 at [facility] with findings of 95% distal RCA in-stent restenosis at the AV groove bifurcation, 50% mid RCA in-stent restenosis at the acute marginal, and a 50% mid LAD stenosis that was felt to be angiographically unchanged compared to his previous study.He was treated with a PALLAVI at the origin of the RPDA. Problem List: 1.Premature ASCVD -Acute coronary syndrome in November 2010, status post drug-eluting stent to the right coronary artery. -Recurrent angina, status post bare-metal stent to the right coronary artery x2 in April 2016. -Presentation with angina and abnormal stress testing, status post November 11, 2016 PCI of the distal RCA with a drug eluting stent. 2.Hypertension 3.Low HDL dyslipidemia. Patient with well documented intolerance to multiple limit lowering therapies including atorvastatin, simavasatin, pravastatin, rosuvastatin, gemfibrozil, colestipol, and fenofibrate. He is on ezetimibe, LDL level 85 mg/dl 06/27/21 4.Bilateral internal carotid artery disease. 5.Chronic tobacco use. Allergies Allergy/AdvReac Type Severity Reaction Status Date / Time azithromycin Allergy Intermediate Hives Verified 08/26/21 18:04 Penicillins Allergy Intermediate HIVES Verified 08/26/21 18:04 Sulfa (Sulfonamide Allergy Intermediate HIVES Verified 08/26/21 18:04 Antibiotics) tetanus toxoid, adsorbed Allergy Intermediate swelling Verified 08/26/21 18:04 simvastatin AdvReac Intermediate MUSCLE PAIN Verified 08/26/21 18:04 Home Medications Medication Instructions Recorded Confirmed Type acetaminophen 325 mg tablet 325 mg PO QID PRN 11/24/18 08/26/21 History (Tylenol) allopurinol 300 mg tablet 300 mg PO QPM 11/24/18 08/26/21 History aspirin 81 mg tablet,delayed 81 mg PO QPM 11/24/18 08/26/21 History release clopidogrel 75 mg tablet 75 mg PO QPM 11/24/18 08/26/21 History escitalopram oxalate 20 mg tablet 20 mg PO QPM 11/24/18 08/26/21 History (Lexapro) ezetimibe 10 mg tablet 10 mg PO QPM 11/24/18 08/26/21 History nitroglycerin 0.4 mg sublingual 0.4 mg SUBLINGUAL UD PRN 11/24/18 08/26/21 History tablet lisinopril 10 mg tablet 10 mg PO QPM 08/26/21 08/26/21 History Patient History Medical History Back pain Chaves esophagus CAD (coronary artery disease) "Nov 2010- PALLAVI to RCA April 2015- bare metal stent x2 to RCA in April 2015" COPD (chronic obstructive pulmonary disease) Depression Diverticulitis Dyslipidemia Esophageal stricture GI bleed Gout Hiatal hernia Hypertension Kidney stone Sleep apnea "non compliant with CPAP" Tobacco abuse disorder Upper GI bleed Surgical History H/O arthroscopy of knee H/O colonoscopy History of Wei fundoplication Hx of cholecystectomy S/P coronary artery stent placement Family History Other Cancer Diabetes Gallbladder disease Heart disease Social History Smoking Status: Current every day smoker Tobacco Type: Cigarettes Cigarettes Per Day: 20; Hx Alcohol Use: No Hx Substance Use: No Preferred Language: [place] Communication Ability: Effective Sie[employer] Solution Architect Required: No Beliefs That Will Affect Care: None marital status: Current Living Situation: Spouse current occupational status: employed Feels Safe at Home: Yes Assistive Devices: None Review of Systems Review of Systems: All systems reviewed & are unremarkable except as noted in HPI & below Physical Exam Physical Exam: Temp Pulse Resp BP Pulse Ox 36.7 C 59 L 18 199/97 H 96 08/27/21 14:12 08/27/21 14:12 08/27/21 14:12 08/27/21 14:12 08/27/21 14:12 Constitutional: WD/WN, vitals as above Respiratory: normal respiratory effort, lungs clear to auscultation Cardiovascular: RRR, no murmur, no edema Gastrointestinal (Abdomen): normal bowel sounds, soft, nontender, no hepatosplenomegaly Neurologic: PERRL, EOMI, accommodation nl, no face palsy, no dysarthria Results & Data ([facility]) Vital Signs (Past 12 Hours) Vital Signs Temp Pulse Pulse Resp BP Pulse Ox 08/27/21 12:57 66 08/27/21 08:00 36.9 C 63 18 155/88 H 96 08/27/21 04:12 36.8 C 48 L 16 171/86 H 97 08/27/21 01:39 49 L 18 170/80 H 98 Laboratory Results Cardiac Enzymes 08/26/21 08/27/21 08/27/21 Range/Units 17:18 05:27 11:21 Troponin I < 0.015 < 0.015 < 0.015 (0-0.045) ng/ml Coagulation 08/26/21 Range/Units 17:18 PT 10.1 (9.0-12.0) Seconds APTT 28.2 (21.0-31.0) Seconds CBC 08/26/21 08/27/21 Range/Units 17:18 05:27 WBC 11.71 H 11.07 H (4.8-10.8) K/uL RBC 4.87 4.86 (4.7-6.1) M/uL Hgb 15.1 14.9 (14.0-18.0) g/dL Hct 44.8 45.4 (42-52) % Plt Count 293 279 (130-400) K/uL Neut # (Auto) 7.86 H 8.11 H (1.4-6.5) K/uL Lymph # (Auto) 2.82 1.98 (1.2-3.4) K/uL Thomas # (Auto) 0.84 H 0.71 H (0.11-0.59) K/uL Eos # (Auto) 0.11 0.19 (0-0.5) K/uL Baso # (Auto) 0.03 0.05 (0-0.2) K/uL Comprehensive Metabolic Panel 08/26/21 08/27/21 Range/Units 17:18 05:27 Sodium 139 139 (136-145) mmol/L Potassium 3.9 4.3 (3.5-5.1) mmol/L Chloride 107 109 H (98-107) mmol/L Carbon Dioxide 24 25 (21-32) mmol/L BUN 13 12 (7-18) mg/dl Creatinine 1.36 0.91 D (0.6-1.4) mg/dl Glucose 112 H 113 H (70-99) mg/dl Calcium 9.2 9.3 (8.5-10.1) mg/dl Intake and Output 08/26/21 08/27/21 08/27/21 22:59 06:59 14:59 Intake Total 1000 / 1000 Balance 1000 / 1000 Intake: IV 1000 / 1000 Sodium Chloride 0.9% 1000ML 1, 1000 / 1000 000 ml @ 999 mls/hr IV .Q1H1M STA Rx#:[id number] Other: # Unmeasured Voids 1 Weight 86.4 kg Weight Measurement Method Built in [facility] Diagnostic Findings Summary of radiology report of CTA of chest: 1. There is no evidence of pulmonary embolus in the main, lobar, or segmental pulmonary arteries. 2. Cardiomegaly and emphysema. 3. There is no airspace consolidation or pleural effusion. 4. Diffuse peribronchial thickening suggests bronchitis/reactive airway disease. Clinical correlation will be required. 5. Mildly enlarged mediastinal and hilar nodes are nonspecific and not significa ntly changed dating back to 2014. 6. Circumferential wall thickening is suggested in the mid to distal esophagus. Correlate clinically for evidence of esophagitis. (1) Chest pain Chest pain type: unspecified Qualified Code(s): R07.9 - Chest pain, unspecified
[2021-08-27] MEDS ORDERED: lisinopril 10 MG TAB PO ONE (15:35)
[2021-08-27] MEDS ORDERED: ENALAPRILAT 1.25 MG in DEXTROSE 5% 25 ML IV ONE (15:45)
--- NOTE | 2021-08-27 16:56 | Hospitalist Progress Note ---
Date of Service August 27, 2021 Assessment & Plan (1) Chest pain: Plan: Chest pain Cardiac vs musculoskeletal related to recent shoulder surgery Due to his significant cardiac risk factors, stress test was planned This was cancelled due to hypertensive urgency. SBP was >200 when patient arrived at stress Lisinopril given and a dose of vasotec Cardiology increased lisinopril to 20mg tomorrow. Plan to add HCTZ tomorrow Follow up with Cardiology tomorrow to see if stress test will still be needed prior this hospital stay (2) Hypertensive urgency: Plan: As above (3) CAD (coronary artery disease): Plan: H/o cardiac stents Continue ASA, plavix, zetia (4) Depression: Plan: Continue home lexapro (5) Gout: Plan: Continue allopurinol (6) DVT prophylaxis: Plan: SCD Ambulate Admission and Anticipated Discharge Date Admission Date: August 26, 2021 Subjective 66-year-old man with Gout, prediabetes, COPD hearing loss lumbar radiculopathy, ischemic heart disease status post stents, depression, anxiety, lumbar radiculopathies, psoriasis, tobacco use, sensorineural hearing loss who presented with left-sided chest pain. Patient also reported recent surgery in the left shoulder 9 months ago s/p PT Patient seen and examined today Reports left sided chest pain, worse with activity/labor, intermittent, on and off for the past week Currently denies any headache, dizziness Denied cough, SOB, palpitation Denied nausea, vomiting, diarrhea, abd pain Denied dysuria, freq, urgency Physical Exam Constitutional: + well hydrated; no acute distress Eyes: PERRL, conjunctivae normal, anicteric sclerae ENMT: external ear and nose normal, oropharynx normal Respiratory: normal respiratory effort, lungs clear to auscultation Cardiovascular: RRR, no murmur, no edema Chest (Breasts): Additional Comments: Surgical scar on left shoulder region. Mild tenderness around area Gastrointestinal (Abdomen): normal bowel sounds, soft, nontender, no hepatosplenomegaly Musculoskeletal: no cyanosis or clubbing, extremities motor strength 5/5 Neurologic: PERRL, EOMI, accommodation nl, no face palsy, no dysarthria Psychiatric: A+Ox3, euthymic affect Results & Data Results & Data ([facility]) Vital Signs (Past 12 Hours) Vital Signs Temp Pulse Pulse Resp BP Pulse Ox 08/27/21 16:10 56 L 08/27/21 14:12 36.7 C 59 L 18 199/97 H 96 08/27/21 12:57 66 08/27/21 08:00 36.9 C 63 18 155/88 H 96 Laboratory Results Abnormal lab results 08/26/21 08/26/21 08/27/21 Range/Units 17:18 17:18 05:27 WBC 11.71 H (4.8-10.8) K/uL RDW Std Deviation (36.4-46.3) fL Neut # (Auto) 7.86 H (1.4-6.5) K/uL Mckinley # (Auto) 0.84 H (0.11-0.59) K/uL Immature Gran # (Auto) 0.05 H (0.00-0.02) K/uL ESR 29 H (0-20) mm/hr Chloride (98-107) mmol/L BUN/Creatinine Ratio 9.6 L (10-20) Glucose 112 H (70-99) mg/dl C-Reactive Protein (0-0.29) mg/dl 08/27/21 08/27/21 Range/Units 05:27 05:27 WBC 11.07 H (4.8-10.8) K/uL RDW Std Deviation 46.9 H (36.4-46.3) fL Neut # (Auto) 8.11 H (1.4-6.5) K/uL Mckinley # (Auto) 0.71 H (0.11-0.59) K/uL Immature Gran # (Auto) 0.03 H (0.00-0.02) K/uL ESR (0-20) mm/hr Chloride 109 H (98-107) mmol/L BUN/Creatinine Ratio (10-20) Glucose 113 H (70-99) mg/dl C-Reactive Protein 0.82 H (0-0.29) mg/dl (1) Chest pain Chest pain type: unspecified Qualified Code(s): R07.9 - Chest pain, unspecified
[2021-08-27] MEDS: ACETAMINOPHEN 325 MG TAB PO PRN (17:11)
[2021-08-27] MEDS ORDERED: LORazepam 0.5 MG TAB PO STA (17:16)
[2021-08-27] MEDS ORDERED: LORazepam 0.5 MG TAB ONE (17:26)
[2021-08-27] MEDS: ENALAPRILAT 1.25 MG in DEXTROSE 5% 25 ML IV PRN (23:48)
[2021-08-28] MEDS: lisinopril 20 MG TAB PO SCH ×2 (05:58→10:10)
[2021-08-28] MEDS: hydroCHLOROthiazide 25 MG TAB PO SCH ×2 (05:58→10:10)
[2021-08-28] MEDS: ENALAPRILAT 1.25 MG in DEXTROSE 5% 25 ML IV PRN (07:51)
[2021-08-28 08:32] LABS: Hematocrit (blood only) 47.6 % (42-52); Hemoglobin 16.3 g/dL (14.0-18.0); Mean Corpuscular Hemoglobin 30.9 pg (25-34); Mean Corpuscular Hgb Conc 34.2 g/dL (32-36); Mean Corpuscular Volume 90.3 fL (80-100); Mean Platelet Volume 9.3 fL (7.4-10.4); Platelet Count 319 K/uL (130-400); RDW Coefficient of Variation 13.5 % (11.5-14.5); RDW Standard Deviation 44.4 fL (36.4-46.3); Red Blood Count 5.27 M/uL (4.7-6.1)
[2021-08-28] MEDS: PANTOprazole 40 MG in SYRINGE 0 ML IV SCH (08:43)
[2021-08-28 09:08] LABS: Calcium 10.1 mg/dl (8.5-10.1); Creatinine Clr Calc Pharmacy 85.8 ml/min; Est GFR (African American) 105.7 ml/min; Est GFR (Non-African American) 91.2 ml/min; Potassium 3.9 mmol/L (3.5-5.1)
--- NOTE | 2021-08-28 10:42 | Cardiology Progress Note ---
Date of Service August 28, 2021 Assessment & Plan (1) Chest pain: (2) Hypertension: (3) CAD (coronary artery disease): Plan: (1) Chest pain: -The patient presented with chest discomfort that seemed atypical in character for angina, and seems to be exacerbated by movement of his left upper arm shoulder, with having had shoulder surgery 9 months ago and recent possible re- injury after lifting heavy objects. EKGs has been without acute ischemic changes.. Troponin has been negative x4, despite ongoing left shoulder pain/diuresis Echo reveals normal LV function without wall motion abnormalities. Initially thought to proceed with exercise stress echo, however his BP has been prohibitively high. BP remains high this morning so will not proceed with stress testing at this time. Concentrate on managing blood pressure. (2) Hypertension: BP remains elevated this morning approx 4 hours after AM meds Lisinopril was increased from 10 to 20 mg and hctz was added. Tolerating changes thus far. Not a candidate for AV diandra blockers at HR in 50s at baseline. Did not tolerate amlodipine in past due to subjective fatigue. Recommend trial of isosorbide 30 mg - 1 tablet daily, first dose now given uncontrolled HTN and underlying CAD. Monitor BP Future stress testing to be discussed once BP has improved would recommend f/u with orthopedic surgeon regarding worsening left shoulder pain Case discussed with Dr. Mantilla. Will monitor. Admission and Anticipated Discharge Date Admission Date: August 26, 2021 Subjective Patient resting in bed comfortably. Notes ongoing left arm/shoulder pain. Worse with movement. Reports he had surgery about 9 months ago and things were impro ving until he was doing some heavy lifting several weeks ago and notes worsening left shoulder arm pain since this time. Feels his pain may be contributing to his elevated BP. He notes feeling "sweaty" this morning but denies other symptoms of SOB, chest pain. Notes mild dizziness when getting out of bed. No syncope or near syncope. No palpitations. Review of Systems Review of Systems: All systems reviewed & are unremarkable except as noted in HPI & below Physical Exam Physical Exam: Temp Pulse Resp BP Pulse Ox 36.7 C 59 L 18 199/97 H 96 08/27/21 14:12 08/27/21 14:12 08/27/21 14:12 08/27/21 14:12 08/27/21 14:12 Constitutional: WD/WN, vitals as above no acute distress Respiratory: normal respiratory effort, lungs clear to auscultation Cardiovascular: RRR, no murmur, no edema Gastrointestinal (Abdomen): normal bowel sounds, soft, nontender, no hepatosplenomegaly Neurologic: PERRL, EOMI, accommodation nl, no face palsy, no dysarthria Psychiatric: A+Ox3, euthymic affect Results & Data ([facility]) Vital Signs (Past 12 Hours) Vital Signs Temp Pulse Pulse Pulse Resp BP BP 08/28/21 09:43 65 194/95 H 08/28/21 08:41 64 173/99 H 08/28/21 08:00 56 L 08/28/21 07:45 36.9 C 63 18 204/97 H 201/103 H 08/28/21 03:00 36.8 C 59 L 20 163/84 H 186/103 H 08/28/21 02:36 56 L 08/28/21 01:12 58 L 179/78 H 08/27/21 23:00 36.8 C 55 L 20 195/91 H Pulse Ox 08/28/21 09:43 08/28/21 08:41 08/28/21 08:00 08/28/21 07:45 96 08/28/21 03:00 96 08/28/21 02:36 08/28/21 01:12 08/27/21 23:00 97 Laboratory Results 08/28/21 08/28/21 08/27/21 Range/Units 07:46 07:46 17:23 WBC 10.10 (4.8-10.8) K/uL RBC 5.27 (4.7-6.1) M/uL Hgb 16.3 (14.0-18.0) g/dL Hct 47.6 (42-52) % MCV 90.3 (80-100) fL MCH 30.9 (25-34) pg MCHC 34.2 (32-36) g/dL RDW Std Deviation 44.4 (36.4-46.3) fL RDW Coeff of Marysol 13.5 (11.5-14.5) % Plt Count 319 (130-400) K/uL MPV 9.3 (7.4-10.4) fL Sodium 137 (136-145) mmol/L Potassium 3.9 (3.5-5.1) mmol/L Chloride 107 (98-107) mmol/L Carbon Dioxide 22 (21-32) mmol/L Anion Gap 9.0 (3-11) BUN 13 (7-18) mg/dl Creatinine 0.87 (0.6-1.4) mg/dl Est Cr Clr Drug Dosing 85.8 ml/min Est GFR ( Amer) 105.7 ml/min Est GFR (Non-Af Amer) 91.2 ml/min BUN/Creatinine Ratio 15.0 (10-20) Glucose 117 H (70-99) mg/dl Calcium 10.1 (8.5-10.1) mg/dl Troponin I < 0.015 (0-0.045) ng/ml 08/27/21 Range/Units 11:21 WBC (4.8-10.8) K/uL RBC (4.7-6.1) M/uL Hgb (14.0-18.0) g/dL Hct (42-52) % MCV (80-100) fL MCH (25-34) pg MCHC (32-36) g/dL RDW Std Deviation (36.4-46.3) fL RDW Coeff of Marysol (11.5-14.5) % Plt Count (130-400) K/uL MPV (7.4-10.4) fL Sodium (136-145) mmol/L Potassium (3.5-5.1) mmol/L Chloride (98-107) mmol/L Carbon Dioxide (21-32) mmol/L Anion Gap (3-11) BUN (7-18) mg/dl Creatinine (0.6-1.4) mg/dl Est Cr Clr Drug Dosing ml/min Est GFR ( Amer) ml/min Est GFR (Non-Af Amer) ml/min BUN/Creatinine Ratio (10-20) Glucose (70-99) mg/dl Calcium (8.5-10.1) mg/dl Troponin I < 0.015 (0-0.045) ng/ml Diagnostic Findings Telemetry reviewed - NSR, no concerning arrhythmias EKG from 08/27 reviewed Sinus bradycardia, no acute ST/T wave changes No change from previous Echo report reviewed dated 08/27 Normal LV systolic function EF 55-60% Mild concentric LVH aortic valve sclerosis mild without stenosis mild TR No evidence of pulm hypertension Medications Administered Current Inpatient Medications Acetaminophen (Acetaminophen 325 Mg Tab) 650 mg PO Q4H PRN PRN Reason: Pain or Fever Stop: 09/25/21 23:12 Last Admin: 08/27/21 17:11 Dose: 650 mg Documented by: Allopurinol (Allopurinol 300 Mg Tab) 300 mg PO QPM JOSEE Stop: 09/25/21 23:12 Last Admin: 08/27/21 21:13 Dose: 300 mg Documented by: Aspirin (Aspirin 81 Mg Ectab) 81 mg PO QPM JOSEE Stop: 09/25/21 23:12 Last Admin: 08/27/21 21:13 Dose: 81 mg Documented by: Clopidogrel Bisulfate (Clopidogrel Bisulfate 75 Mg Tab) 75 mg PO QPM [facility] Stop: 09/25/21 23:12 Last Admin: 08/27/21 21:12 Dose: 75 mg Documented by: Ezetimibe (Ezetimibe 10 Mg Tablet) 10 mg PO QPM JOSEE Stop: 09/25/21 23:12 Last Admin: 08/27/21 21:12 Dose: 10 mg Documented by: Escitalopram Oxalate (Escitalopram Oxalate 20 Mg Tab) 20 mg PO QPM [facility] Stop: 09/25/21 23:12 Last Admin: 08/27/21 21:12 Dose: 20 mg Documented by: Hydrochlorothiazide (Hydrochlorothiazide 25 Mg Tab) 25 mg PO QAM [facility] Stop: 09/27/21 08:59 Last Admin: 08/28/21 10:10 Dose: Not Given Documented by: Pantoprazole Sodium 40 mg/ (Syringe) 10 mls @ 5 mls/min IV BID [facility] Stop: 09/25/21 23:29 Last Admin: 08/28/21 08:43 Dose: 5 mls/min Documented by: Enalaprilat 1.25 mg/ Dextrose 26 mls @ 100 mls/hr IV Q6H PRN PRN Reason: Hypertension Stop: 09/26/21 23:29 Last Infusion: 08/28/21 08:10 Dose: Infused Documented by: Isosorbide Mononitrate (Isosorbide [place] Extended Rel 30 Mg Tabcr) [facility]: 09/27/21 10:59 Lisinopril (Lisinopril 20 Mg Tab) [facility] [place]: 09/27/21 08:59 Last Admin: 08/28/21 10:10 Dose: Not Given Documented by: Nitroglycerin (Nitroglycerin Sl 0.4 Mg/Tab Tab) 0.4 mg SL Q5M PRN PRN Reason: Chest Pain Stop: 09/25/21 23:12 Ondansetron HCl (Ondansetron Inj 2 Mg/Ml 2 Ml Vial) 4 mg IV Q6H PRN PRN Reason: Nausea Stop: 09/25/21 23:12 Polyethylene Glycol (Polyethylene (Miralax) 17 Gm Pack) 17 gm PO DAILY PRN PRN Reason: Constipation Stop: 09/25/21 23:12 Attestations Attending Attestation Supervising Physician Attestation: I have personally performed a history and physical examination on the patient. I agree with the physician assistant city attorney's findings and plan as documented with the following additions. Subjective: Patient feeling well. Most recent blood pressure improved to 147/79.No chest discomfort. Tolerated the addition of isosorbide mononitrate with only very minimal headache. Exam: Cardiovascular: Regular rhythm, no murmurs, no edema Data: Troponin I less than 0.015 NG per mL x4 measurements thus far this hospital stay EKG performed 08/28/2021, 6:03 AM and reviewed in [facility] sinus bradycardia 57 bpm, normal EKG. Assessment and Plan: Chest discomfort, atypical for angina, seen in the musculoskeletal Uncontrolled hypertension -In June,, the patient's lisinopril dose had been increased from 5 mg to 10 mg as an outpatient. Lisinopril has now been increased to 10 mg daily. HCTZ 25 mg daily added Isosorbide mononitrate 30 mg daily. Keep in hospital this evening, if blood pressure well controlled likely discharge tomorrow. DVT prophylaxis: Patient is mobile. He has been walking. Negro Mantilla DO. (1) Chest pain Chest pain type: unspecified Qualified Code(s): R07.9 - Chest pain, unspecified
[2021-08-28] MEDS: ACETAMINOPHEN 325 MG TAB PO PRN (10:44)
--- NOTE | 2021-08-28 11:23 | Electrocardiogram Report ---
Test Reason : Blood Pressure : / mmHG Vent. Rate : 057 BPM Atrial Rate : 057 BPM P-R Int : 154 ms QRS Dur : 098 ms QT Int : 434 ms P-R-T Axes : 071 077 063 degrees QTc Int : 422 ms Sinus bradycardia Otherwise normal ECG When compared with ECG of 27-AUG-2021 04:10, No significant change was found Confirmed by Marty Rivera ([id number] on 08/28/2021 11:22:56 AM Referred By: REFERRED SELF Confirmed By:Tito Rivera
[2021-08-28] MEDS: ISOSORBIDE MONO EXTENDED REL 30 MG TABCR PO SCH (11:27)
[2021-08-28] MEDS ORDERED: traMADol HCL 50 MG TABLET PO PRN (12:44)
--- NOTE | 2021-08-28 19:52 | Hospitalist Progress Note ---
Date of Service August 28, 2021 Assessment & Plan (1) Chest pain: Plan: Atypical Chest pain Cardiac vs musculoskeletal related to recent shoulder surgery EKG showed no signs of acute ischemia Troponin is negative Echo showed no wall motion abnormality Plan for stress test when blood pressure more stable Appreciate cardiology input (2) Hypertensive urgency: Plan: H/O sleep apnea, intolerance to CPAP in the past Lisinopril increased to 20 mg daily Added HCTZ Avoid AV diandra blocking agents given bradycardia History of intolerance to amlodipine Started on isosorbide 30 mg daily Appreciate cardiology input Vasotec as needed Advised to repeat sleep study as outpatient (3) CAD (coronary artery disease): Plan: H/o cardiac stents Continue ASA, plavix, zetia (4) Depression: Plan: Continue lexapro (5) Gout: Plan: Continue allopurinol (6) DVT prophylaxis: Plan: SCD Ambulate Admission and Anticipated Discharge Date Admission Date: August 28, 2021 Subjective Patient is seen and examined at bedside Complains of left shoulder pain from prior surgery Also reports diaphoresis Denies any chest pain, shortness of breath, dizziness, nausea, abdominal pain, headache, blurry vision Blood pressure uncontrolled this morning Review of Systems Review of Systems: All systems reviewed & are unremarkable except as noted in Subjective Physical Exam Physical Exam: Physical Exam: Vitals signs as noted above General Appearance:Moderately built and nourished, no apparent distress Head: normocephalic, Atraumatic Eyes: normal inspection, EOMI Neck: supple, Trachea midline Respiratory/Chest: Normal breath sounds, CTA, No accessory muscle use Cardiovascular: S1, S2, No murmur Abdomen/GI:Soft, Non tender, Bowel sounds present Extremities/Musculoskeletal:normal inspection, no edema, Left Shoulder Surgical Scar Neurologic/Psych:AAOX3, grossly no focal neurological deficits Skin: normal color, warm Results & Data Results & Data ([facility]) Vital Signs (Past 12 Hours) Vital Signs Temp Pulse Pulse Pulse Pulse Resp BP 08/28/21 19:41 36.8 C 65 18 08/28/21 15:51 36.7 C 65 20 08/28/21 15:25 72 08/28/21 13:51 159/78 H 08/28/21 11:30 36.6 C 62 16 176/92 H 08/28/21 09:43 65 194/95 H 08/28/21 08:41 64 173/99 H 08/28/21 08:00 56 L BP Pulse Ox 08/28/21 19:41 152/80 H 94 08/28/21 15:51 147/79 H 98 08/28/21 15:25 08/28/21 13:51 08/28/21 11:30 94 08/28/21 09:43 08/28/21 08:41 08/28/21 08:00 Laboratory Results Short CBC 08/28/21 Range/Units 07:46 WBC 10.10 (4.8-10.8) K/uL Hgb 16.3 (14.0-18.0) g/dL Hct 47.6 (42-52) % Plt Count 319 (130-400) K/uL BMP 08/28/21 07:46 Sodium 137 Potassium 3.9 Chloride 107 Carbon Dioxide 22 BUN 13 Creatinine 0.87 Glucose 117 H Calcium 10.1 (1) Chest pain Chest pain type: unspecified Qualified Code(s): R07.9 - Chest pain, unspecified
[2021-08-28] MEDS: CLOPIDOGREL BISULFATE 75 MG TAB PO SCH (20:43)
[2021-08-28] MEDS: allopurinoL 300 MG TAB PO SCH (20:43)
[2021-08-28] MEDS: ASPIRIN 81 MG ECTAB PO SCH (20:43)
[2021-08-28] MEDS: ESCITALOPRAM OXALATE 20 MG TAB PO SCH (20:44)
[2021-08-28] MEDS: EZETIMIBE 10 MG TABLET PO SCH (20:44)
[2021-08-29] MEDS: ISOSORBIDE MONO EXTENDED REL 30 MG TABCR PO SCH (07:42)
[2021-08-29] MEDS: lisinopril 20 MG TAB PO SCH (07:42)
[2021-08-29] MEDS: hydroCHLOROthiazide 25 MG TAB PO SCH (07:42)
[2021-08-29] MEDS ORDERED: LORazepam 0.5 MG TAB PO ONE (07:45)
[2021-08-29] MEDS: PANTOprazole 40 MG TAB PO SCH (08:52)
[2021-08-29] MEDS: busPIRone 5 MG TAB PO SCH ×2 (08:52→13:33)
[2021-08-29] MEDS: NICOTINE 14 MG/24 HR PATCH TD SCH (08:52)
[2021-08-29 09:15] LABS: BUN Creatinine Ratio 21.3 (10-20); Creatinine Clr Calc Pharmacy 77.7 ml/min; Est GFR (African American) 96.4 ml/min; Est GFR (Non-African American) 83.2 ml/min; Magnesium 2.3 mg/dl (1.8-2.4); Potassium 3.8 mmol/L (3.5-5.1)
--- NOTE | 2021-08-29 10:02 | Cardiology Progress Note ---
Date of Service August 29, 2021 Assessment & Plan (1) Chest pain: (2) Hypertension: (3) CAD (coronary artery disease): Plan: (1) Chest pain: -The patient presented with chest discomfort that seemed atypical in character for angina, and seems to be exacerbated by movement of his left upper arm shoulder, with having had shoulder surgery 9 months ago and recent possible re- injury after lifting heavy objects. EKGs have been without acute ischemic changes.. Troponin has been negative x4. Echo reveals normal LV function without wall motion abnormalities. Initially thought to proceed with exercise stress echo, however his BP has been prohibitively high. No recurrent chest pain since admission. Concentrate on managing blood pressure. Consider outpatient stress if he has recurrent symptoms, once BP is controlled (2) Hypertension: Since admission, lisinopril increased from 10 to 20 mg and hctz was added at 25 mg daily Isosorbide added yesterday. BP was trending down yesterday afternoon. Not a candidate for AV diandra blockers at HR in 50s at baseline. Did not tolerate amlodipine in past due to subjective fatigue. This morning, patient had a panic attack, BP spiked. BP not trending down after several hours of AM meds. He is asymptomatic, other than feeling anxious. Add felodipine 5 mg daily (3)Anxiety/depression -significant emotional stressors, likely resulting in labile BP readings -psych consulted Case discussed with Dr. Mantilla. Will monitor. Admission and Anticipated Discharge Date Admission Date: August 28, 2021 Supervising Physician Co-Signing Physician Notes Attending Staff Physician Addendum: I personally performed a history and physical on the patient. Agree with Analy Moody PA-C's findings and plans with additions as noted below. S: Feels well. No symptoms suggestive of angina. Exam: lungs clear, CV regular, no murmur, no edema Impression Non anginal chest / shoulder pain. HTN anxiety Plan: Continue lisinopril, Imdur, HCTZ. Address anxiety. Possible DC later today. Subjective Patient resting on edge of his bed. Admits to being very anxious this morning. Feels his anxiety/depression medications are not working. He had a good night, but this morning he was getting cleaned up in the restroom and admits to significant anxiety/panic attack. Reports he was crying and not doing well. Psych has been consulted. It was around this time his BP spiked. He received his AM medications. Remains elevated. He denies associated symptoms of chest pain, dyspnea, headache, vision changes. No cardiac symptoms, only admits to being anxious. Feels his BP would be better at home. Hoping to be discharged today. Review of Systems Review of Systems: All systems reviewed & are unremarkable except as noted in HPI & below Physical Exam Physical Exam: Temp Pulse Resp BP Pulse Ox 36.7 C 59 L 18 199/97 H 96 08/27/21 14:12 08/27/21 14:12 08/27/21 14:12 08/27/21 14:12 08/27/21 14:12 Constitutional: WD/WN, vitals as above no acute distress Respiratory: normal respiratory effort, lungs clear to auscultation Cardiovascular: RRR, no murmur, no edema Gastrointestinal (Abdomen): normal bowel sounds, soft, nontender, no hepatosplenomegaly Skin: no rashes, warm and dry Neurologic: PERRL, EOMI, accommodation nl, no face palsy, no dysarthria Psychiatric: A+Ox3, euthymic affect Mood: + anxious mood Results & Data ([facility]) Vital Signs (Past 12 Hours) Vital Signs Temp Pulse Pulse Pulse Resp BP BP 08/29/21 09:31 197/94 H 202/98 H 08/29/21 08:37 69 20 216/102 H 209/101 H 08/29/21 07:41 79 16 200/100 H 204/100 H 08/29/21 07:31 37.0 C 69 18 222/124 H 198/103 H 08/29/21 07:20 94 H 08/29/21 03:50 36.5 C 61 18 167/77 H 08/28/21 23:12 36.9 C 58 L 18 136/79 08/28/21 22:19 54 L Pulse Ox 08/29/21 09:31 08/29/21 08:37 95 08/29/21 07:41 08/29/21 07:31 95 08/29/21 07:20 08/29/21 03:50 95 08/28/21 23:12 94 08/28/21 22:19 Laboratory Results 08/29/21 Range/Units 07:31 Sodium 134 L (136-145) mmol/L Potassium 3.8 (3.5-5.1) mmol/L Chloride 104 (98-107) mmol/L Carbon Dioxide 21 (21-32) mmol/L Anion Gap 8.0 (3-11) BUN 20 H D (7-18) mg/dl Creatinine 0.96 (0.6-1.4) mg/dl Est Cr Clr Drug Dosing 77.7 ml/min Est GFR ( Amer) 96.4 ml/min Est GFR (Non-Af Amer) 83.2 ml/min BUN/Creatinine Ratio 21.3 H (10-20) Glucose 117 H (70-99) mg/dl Calcium 10.0 (8.5-10.1) mg/dl Magnesium 2.3 (1.8-2.4) mg/dl Diagnostic Findings Telemetry reviewed - NSR, HR's in the 60's no concerning arrhythmias. Medications Administered Medications acetaminophen 325 mg tablet (Tylenol) 325 mg PO QID PRN 11/24/18 [History Confirmed 08/26/21] allopurinol 300 mg tablet 300 mg PO QPM 11/24/18 [History Confirmed 08/26/21] aspirin 81 mg tablet,delayed release 81 mg PO QPM 11/24/18 [History Confirmed 08/26/21] clopidogrel 75 mg tablet 75 mg PO QPM 11/24/18 [History Confirmed 08/26/21] escitalopram oxalate 20 mg tablet (Lexapro) 20 mg PO QPM 11/24/18 [History Confirmed 08/26/21] ezetimibe 10 mg tablet 10 mg PO QPM 11/24/18 [History Confirmed 08/26/21] nitroglycerin 0.4 mg sublingual tablet 0.4 mg SUBLINGUAL UD PRN 11/24/18 [History Confirmed 08/26/21] lisinopril 10 mg tablet 10 mg PO QPM 08/26/21 [History Confirmed 08/26/21] Home Medications Acetaminophen (Acetaminophen 325 Mg Tab) 650 mg PO Q4H PRN PRN Reason: Pain or Fever Stop: 09/25/21 23:12 Last Admin: 08/28/21 10:44 Dose: 650 mg Documented by: Allopurinol (Allopurinol 300 Mg Tab) 300 mg PO QPM JOSEE Stop: 09/25/21 23:12 Last Admin: 08/28/21 20:43 Dose: 300 mg Documented by: Aspirin (Aspirin 81 Mg Ectab) 81 mg PO QPM [facility] Stop: 09/25/21 23:12 Last Admin: 08/28/21 20:43 Dose: 81 mg Documented by: Buspirone HCl (Buspirone 5 Mg Tab) 5 mg PO TID [facility] Stop: 09/28/21 08:59 Last Admin: 08/29/21 08:52 Dose: 5 mg Documented by: Clopidogrel Bisulfate (Clopidogrel Bisulfate 75 Mg Tab) 75 mg PO QPM [facility] Stop: 09/25/21 23:12 Last Admin: 08/28/21 20:43 Dose: 75 mg Documented by: Ezetimibe (Ezetimibe 10 Mg Tablet) 10 mg PO QPM [facility] Stop: 09/25/21 23:12 Last Admin: 08/28/21 20:44 Dose: 10 mg Documented by: Escitalopram Oxalate (Escitalopram Oxalate 20 Mg Tab) 20 mg PO QPM [facility] Stop: 09/25/21 23:12 Last Admin: 08/28/21 20:44 Dose: 20 mg Documented by: Felodipine (Felodipine 5 Mg Tabcr) 5 mg PO [facility] Stop: 09/28/21 08:59 Hydrochlorothiazide (Hydrochlorothiazide 25 Mg Tab) 25 mg PO [facility] Stop: 09/27/21 08:59 Last Admin: 08/29/21 07:42 Dose: 25 mg Documented by: Enalaprilat 1.25 mg/ Dextrose 26 mls @ 100 mls/hr IV Q6H PRN PRN Reason: Hypertension Stop: 09/26/21 23:29 Last Infusion: 08/28/21 08:10 Dose: Infused Documented by: Isosorbide Mononitrate (Isosorbide [place] Extended Rel 30 Mg Tabcr) 30 mg PO [facility] Stop: 09/27/21 10:59 Last Admin: 08/29/21 07:42 Dose: 30 mg Documented by: Lisinopril (Lisinopril 20 Mg Tab) 20 mg PO [facility] Stop: 09/27/21 08:59 Last Admin: 08/29/21 07:42 Dose: 20 mg Documented by: Miscellaneous (Remove Nicoderm Patch) 1 ea N/A DAILY@[id number] [facility] Stop: 09/28/21 08:58 Last Admin: 08/29/21 08:52 Dose: Not Given Documented by: Nicotine (Nicotine 14 Mg/24 Hr Patch) 14 mg TD QAM [facility] Stop: 09/28/21 08:59 Last Admin: 08/29/21 08:52 Dose: 14 mg Documented by: Nitroglycerin (Nitroglycerin Sl 0.4 Mg/Tab Tab) 0.4 mg SL Q5M PRN PRN Reason: Chest Pain Stop: 09/25/21 23:12 Ondansetron HCl (Ondansetron Inj 2 Mg/Ml 2 Ml Vial) 4 mg IV Q6H PRN PRN Reason: Nausea Stop: 09/25/21 23:12 Pantoprazole Sodium (Pantoprazole 40 Mg Tab) 40 mg PO QAM [facility] Stop: 09/28/21 08:59 Last Admin: 08/29/21 08:52 Dose: 40 mg Documented by: Polyethylene Glycol (Polyethylene (Miralax) 17 Gm Pack) 17 gm PO DAILY PRN PRN Reason: Constipation Stop: 09/25/21 23:12 Tramadol HCl (Tramadol Hcl 50 Mg Tablet) 50 mg PO Q6H PRN PRN Reason: Pain Stop: 09/27/21 12:44 (1) Chest pain Chest pain type: unspecified Qualified Code(s): R07.9 - Chest pain, unspecified
[2021-08-29] MEDS: FELODIPINE 5 MG TABCR PO SCH (10:05)
--- NOTE | 2021-08-29 10:52 | Electrocardiogram Report ---
Test Reason : Blood Pressure : / mmHG Vent. Rate : 064 BPM Atrial Rate : 064 BPM P-R Int : 150 ms QRS Dur : 094 ms QT Int : 434 ms P-R-T Axes : 058 063 066 degrees QTc Int : 447 ms Normal sinus rhythm Normal ECG When compared with ECG of 28-AUG-2021 06:03, No significant change was found Confirmed by Marty Rivera ([id number]) on 08/29/2021 10:52:07 AM Referred By: REFERRED SELF Confirmed By:Tito Rivera
--- NOTE | 2021-08-29 14:24 | Psychiatric Consultation ---
Date of Consultation August 29, 2021 Impression / Recommendations Impression 66 yo man with a history of depression and anxiety and multiple medical conditions per below was admitted medically for chest pain and elevated BP. Psychiatry was consulted for assessment of depression and anxiety. Diagnostically consistent with unspecified anxiety, could be manifestation of worsening MODESTO or depression with anxious features vs worsening anxiety due to physiological factors of increased BP. Given long history of stability and tolerability with lexapro 20mg would continue this which he agrees with. Notably has some very mild hyponatremia which should be monitored the setting of SSRI us e. Discussed options for anxiety and mood treatment, he is interested in trying mirtazapine which will should help with sleep, appetite, anxiety and provide augmentation with lexapro for antidepressant effects. (1) Anxiety state, unspecified: -Stop buspar, could consider in the future if symptoms persist or do not resolve with mirtazapine addition -Continue lexapro 20 mg qd, monitor for resolution of hyponatremia -Start mirtazapine 15 mg qhs for sleep, appetite, depression and anxiety -Could offer atarax 25 mg daily prn for anxiety Risk Factors Assessment Do You Have Access To A Gun?: No Substance Use Disorders: No Previous Attempt: No Hopelessness: No Protective Factors Assessment : Yes Employed: Yes Stable Relationships: Yes Supportive Family: Yes Good Rapport with Provider: Yes Psych History Identifying Data 66 yo man with a history of depression and anxiety and multiple medical conditions per below was admitted medically for chest pain and elevated BP. Psychiatry was consulted for assessment of depression and anxiety. Chief Complaint "I think my high blood pressure was causing me to feel anxious". History of Present Illness Dennis endorses a history of depression and anxiety well managed on lexapro 20mg qd for the last 10 years. However, over the last few weeks he's been exp eriencing increasing anxiety and increased fatigue, difficulty falling and staying asleep and decreased appetite. He thinks his anxiety may be due to recently elevated BP as he often felt his chest pounding and then felt anxious. No other identifiable precipitants or stressors for reason for increased anxiety that he can identify. No SI. Feels well supported. No other psychiatric history, no hx prior hoispitalizations nor suicide attempts and no outpt providers. Brother with history of depression. No substance use. Likes the lexapro and feels it works well without side effects. Further information per psych liason note 11/4: "Patient is a 66 y/o male from [place]. Patient has been to [place] for 30 years, they have no children. States he has been taking lexapro 20 mg for nearly 10 years and believes his body has "gotten used to" the medication and he was questioning if it needs changed. Dr. Ibarra, his pcp, prescribes his medications. States he has been on a previous medications, similiar, but could not recall the name. He had been on Celexa in the past, but then was switched to lexapro. Had also trialed klonopin. Denies any substance use, denies any history of suicidal or homicidal thoughts. Has not seen a psychiatrist or therapist. 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 Reports he is still working, but has not been to work for the last week, due to not feeling well. Patient has had increased anxiety in the last 3 weeks, anxiety more than depression, but has been easily tearful. States he can fall asleep, but not stay asleep. Reports getting approximately 4 hours of sleep a night. Will wake up at 2:30 and be awake for hours. While admitted to [facility], patient has had blood pressures reaching 216/102. Patient reports his was worried that he had had a heart attack. Eye contact is good. Pleasant during conversation, but easily tearful discussing that he misses his puppy and wants to be at home where he is more relaxed." Past Psychiatric History Do You Have Access To A Gun?: No Allergies Allergy/AdvReac Type Severity Reaction Status Date / Time azithromycin Allergy Intermediate Hives Verified 08/26/21 18:04 Penicillins Allergy Intermediate HIVES Verified 08/26/21 18:04 Sulfa (Sulfonamide Allergy Intermediate HIVES Verified 08/26/21 18:04 Antibiotics) tetanus toxoid, adsorbed Allergy Intermediate swelling Verified 08/26/21 18:04 simvastatin AdvReac Intermediate MUSCLE PAIN Verified 08/26/21 18:04 Home Medications Medication Instructions Recorded Confirmed Type acetaminophen 325 mg tablet 325 mg PO QID PRN 11/24/18 08/26/21 History (Tylenol) allopurinol 300 mg tablet 300 mg PO QPM 11/24/18 08/26/21 History aspirin 81 mg tablet,delayed 81 mg PO QPM 11/24/18 08/26/21 History release clopidogrel 75 mg tablet 75 mg PO QPM 11/24/18 08/26/21 History escitalopram oxalate 20 mg tablet 20 mg PO QPM 11/24/18 08/26/21 History (Lexapro) ezetimibe 10 mg tablet 10 mg PO QPM 11/24/18 08/26/21 History nitroglycerin 0.4 mg sublingual 0.4 mg SUBLINGUAL UD PRN 11/24/18 08/26/21 History tablet lisinopril 10 mg tablet 10 mg PO QPM 08/26/21 08/26/21 History Personal History Beliefs That Will Affect Care: None Patient History Medical History (Updated 08/29/21 @ 20:51 by Leidy Wolff MD) Back pain Chaves esophagus CAD (coronary artery disease) "Nov 2010- PALLAVI to RCA April 2015- bare metal stent x2 to RCA in April 2015" COPD (chronic obstructive pulmonary disease) Depression Diverticulitis Dyslipidemia Esophageal stricture GI bleed Gout Hiatal hernia Hypertension Kidney stone Sleep apnea "non compliant with CPAP" Tobacco abuse disorder Upper GI bleed Surgical History H/O arthroscopy of knee H/O colonoscopy History of Wei fundoplication Hx of cholecystectomy S/P coronary artery stent placement Family History Other Cancer Diabetes Gallbladder disease Heart disease Social History Smoking Status: Current every day smoker Tobacco Type: Cigarettes Cigarettes Per Day: 20; Do You Dip or Chew Tobacco: No; Hx Alcohol Use: No Hx Substance Use: No Preferred Language: Sami Communication Ability: Effective Beverage Server Required: No Beliefs That Will Affect Care: None marital status: Current Living Situation: Spouse current occupational status: employed Other Information That Helps Us Care for You: No Feels Safe at Home: Yes Safety Concerns: Feels Safe At This Time Assistive Devices: None Physical Exam Psychiatric: Orientation: alert and oriented x 3 Apperance: appropriately dressed and appropriately groomed Eye Contact: good eye contact Motor Behavior: no abnormal motor movements Speech: normal rate/rhythm/volume of speech Affect: euthymic affect Mood: + anxious mood Thought Process: goal directed thought process Thought Content: reality based without delusions Suicidal Thoughts: denies suicidal thoughts Homicidal Thoughts: denies homicidal thoughts Hallucinations: no auditory hallucinations and no visual hallucinations Cognition: recent memory grossly intact, remote memory grossly intact, attention grossly intact and language grossly intact Estimated Intelligence: consistent with education level Insight: + fair insight Judgement: + fair judgement Vital Signs (Past 24 Hours): Last Vital Signs Temp 36.8 C 08/29/21 13:58 Pulse 89 08/29/21 13:58 Resp 20 08/29/21 13:58 BP 160/89 H 08/29/21 13:58 Pulse Ox 95 08/29/21 13:58 Review of Systems All systems reviewed & are unremarkable except as noted in HPI & below Results & Data ([facility]) Laboratory Results Na+ 134 L Medications Administered Acetaminophen (Acetaminophen 325 Mg Tab) 650 mg PO Q4H PRN PRN Reason: Pain or Fever Stop: 09/25/21 23:12 Last Admin: 08/28/21 10:44 Dose: 650 mg Documented by: [id number] Admin: 08/27/21 17:11 Dose: 650 mg Documented by: [id number] Allopurinol (Allopurinol 300 Mg Tab) 300 mg PO QPM [facility] Stop: 09/25/21 23:12 Last Admin: 08/28/21 20:43 Dose: 300 mg Documented by: [id number] Admin: 08/27/21 21:13 Dose: 300 mg Documented by: [id number] Admin: 08/27/21 00:44 Dose: 300 mg Documented by: [id number] Aspirin (Aspirin 81 Mg Ectab) 81 mg PO QPM [facility] Stop: 09/25/21 23:12 Last Admin: 08/28/21 20:43 Dose: 81 mg Documented by: [id number] Admin: 08/27/21 21:13 Dose: 81 mg Documented by: [id number] Admin: 08/27/21 00:44 Dose: 81 mg Documented by: [id number] Buspirone HCl (Buspirone 5 Mg Tab) 5 mg PO TID [facility] Stop: 09/28/21 08:59 Last Admin: 08/29/21 13:33 Dose: 5 mg Documented by: [id number] Admin: 08/29/21 08:52 Dose: 5 mg Documented by: [id number] Clopidogrel Bisulfate (Clopidogrel Bisulfate 75 Mg Tab) 75 mg PO QPM [facility] Stop: 09/25/21 23:12 Last Admin: 08/28/21 20:43 Dose: 75 mg Documented by: [id number] Admin: 08/27/21 21:12 Dose: 75 mg Documented by: [id number] Admin: 08/27/21 00:44 Dose: 75 mg Documented by: [id number] Ezetimibe (Ezetimibe 10 Mg Tablet) 10 mg PO QPM [facility] Stop: 09/25/21 23:12 Last Admin: 08/28/21 20:44 Dose: 10 mg Documented by: [id number] Admin: 08/27/21 21:12 Dose: 10 mg Documented by: [id number] Admin: 08/27/21 00:43 Dose: 10 mg Documented by: [id number] Escitalopram Oxalate (Escitalopram Oxalate 20 Mg Tab) 20 mg PO QPM [facility] Stop: 09/25/21 23:12 Last Admin: 08/28/21 20:44 Dose: 20 mg Documented by: [id number] Admin: 08/27/21 21:12 Dose: 20 mg Documented by: [id number] Admin: 08/27/21 00:44 Dose: 20 mg Documented by: [id number] Felodipine (Felodipine 5 Mg Tabcr) 5 mg PO [facility] Stop: 09/28/21 08:59 Last Admin: 08/29/21 10:05 Dose: 5 mg Documented by: [id number] Hydrochlorothiazide (Hydrochlorothiazide 25 Mg Tab) 25 mg PO [facility] Stop: 09/27/21 08:59 Last Admin: 08/29/21 07:42 Dose: 25 mg Documented by: [id number] Admin: 08/28/21 10:10 Dose: Not Given Documented by: [id number] Admin: 08/28/21 05:58 Dose: 25 mg Documented by: [id number] Enalaprilat 1.25 mg/ Dextrose 26 mls @ 100 mls/hr IV Q6H PRN PRN Reason: Hypertension Stop: 09/26/21 23:29 Last Infusion: 08/28/21 08:10 Dose: 0 mls/hr Documented by: [id number] Admin: 08/28/21 07:51 Dose: 100 mls/hr Documented by: [id number] Infusion: 08/28/21 00:50 Dose: 0 mls/hr Documented by: [id number] Admin: 08/27/21 23:48 Dose: 100 mls/hr Documented by: [id number] Isosorbide Mononitrate (Isosorbide [place] Extended Rel 30 Mg Tabcr) 30 mg PO [facility] Stop: 09/27/21 10:59 Last Admin: 08/29/21 07:42 Dose: 30 mg Documented by: [id number] Admin: 08/28/21 11:27 Dose: 30 mg Documented by: [id number] Lisinopril (Lisinopril 20 Mg Tab) 20 mg PO [facility] Stop: 09/27/21 08:59 Last Admin: 08/29/21 07:42 Dose: 20 mg Documented by: [id number] Admin: 08/28/21 10:10 Dose: Not Given Documented by: [id number] Admin: 08/28/21 05:58 Dose: 20 mg Documented by: [id number] Miscellaneous (Remove Nicoderm Patch) 1 ea N/A DAILY@0859 [facility] Stop: 09/28/21 08:58 Last Admin: 08/29/21 08:52 Dose: Not Given Documented by: [id number] Nicotine (Nicotine 14 Mg/24 Hr Patch) 14 mg TD [facility] Stop: 09/28/21 08:59 Last Admin: 08/29/21 08:52 Dose: 14 mg Documented by: [id number] Pantoprazole Sodium (Pantoprazole 40 Mg Tab) 40 mg PO [facility] Stop: 09/28/21 08:59 Last Admin: 08/29/21 08:52 Dose: 40 mg Documented by: [id number] Coding Level of Care Code 30140 Inpt Consult Level 2 Diagnoses Anxiety state, unspecified F41.1 Time Spent (min) 35
--- NOTE | 2021-08-29 16:40 | Hospitalist Progress Note ---
Date of Service August 29, 2021 Assessment & Plan (1) Chest pain: Plan: Atypical Chest pain Cardiac vs musculoskeletal related to recent shoulder surgery EKG showed no signs of acute ischemia Troponin is negative Echo showed no wall motion abnormality Appreciate cardiology input Consider stress test as outpatient as per cardiology Needs follow-up with cardiology upon discharge (2) Hypertensive urgency: Plan: H/O sleep apnea, intolerance to CPAP in the past Continue lisinopril, HCTZ, isosorbide Avoid AV diandra blocking agents given bradycardia History of intolerance to amlodipine Appreciate cardiology input Advised to repeat sleep study as outpatient Added felodipine 5 mg daily Anxiety Depression Appreciate psychiatry input Continue Escitalopram Added mirtazapine (3) CAD (coronary artery disease): Plan: H/o cardiac stents Continue ASA, plavix, zetia (4) Depression: Plan: Management as above (5) Gout: Plan: Continue allopurinol (6) DVT prophylaxis: Plan: SCD Ambulate Admission and Anticipated Discharge Date Admission Date: August 28, 2021 Subjective Patient is seen and examined at bedside States having anxiety this morning Had transient left sided chest discomfort, blurry vision and left arm numbness during the anxiety episode which resolved Discussed with psychiatry today Offers no other complaints BP better today Review of Systems Review of Systems: All systems reviewed & are unremarkable except as noted in Subjective Physical Exam Physical Exam: Physical Exam: Vitals signs as noted above General Appearance:Moderately built and nourished, no apparent distress Head: normocephalic, Atraumatic Eyes: normal inspection, EOMI Neck: supple, Trachea midline Respiratory/Chest: Normal breath sounds, CTA, No accessory muscle use Cardiovascular: S1, S2, No murmur Abdomen/GI:Soft, Non tender, Bowel sounds present Extremities/Musculoskeletal:normal inspection, no edema, Left Shoulder Surgical Scar Neurologic/Psych:AAOX3, grossly no focal neurological deficits Skin: normal color, warm Results & Data Results & Data ([facility]) Vital Signs (Past 12 Hours) Vital Signs Temp Pulse Pulse Resp BP BP Pulse Ox 08/29/21 16:18 88 20 161/88 H 164/91 H 96 08/29/21 15:27 91 H 08/29/21 13:58 36.8 C 89 20 160/89 H 95 08/29/21 11:57 36.2 C L 76 22 159/87 H 96 08/29/21 10:36 36.5 C 64 18 179/84 H 95 08/29/21 09:31 197/94 H 202/98 H 08/29/21 08:37 69 20 216/102 H 209/101 H 95 08/29/21 07:41 79 16 200/100 H 204/100 H 08/29/21 07:31 37.0 C 69 18 222/124 H 198/103 H 95 08/29/21 07:20 94 H Laboratory Results [facility] 08/29/21 07:31 Sodium 134 L Potassium 3.8 Chloride 104 Carbon Dioxide 21 BUN 20 H D Creatinine 0.96 Glucose 117 H Calcium 10.0 (1) Chest pain Chest pain type: unspecified Qualified Code(s): R07.9 - Chest pain, unspecified
[2021-08-29] MEDS: ASPIRIN 81 MG ECTAB PO SCH (20:26)
[2021-08-29] MEDS: EZETIMIBE 10 MG TABLET PO SCH (20:26)
[2021-08-29] MEDS: CLOPIDOGREL BISULFATE 75 MG TAB PO SCH (20:26)
[2021-08-29] MEDS: ESCITALOPRAM OXALATE 20 MG TAB PO SCH (20:26)
[2021-08-29] MEDS: allopurinoL 300 MG TAB PO SCH (20:26)
[2021-08-29] MEDS ORDERED: MIRTAZAPINE TAB 15 MG TAB PO SCH (21:00)
[2021-08-30 08:01] LABS: Hematocrit (blood only) 52.6 % (42-52); Hemoglobin 18.1 g/dL (14.0-18.0); Mean Corpuscular Hemoglobin 31.2 pg (25-34); Mean Corpuscular Hgb Conc 34.4 g/dL (32-36); Mean Corpuscular Volume 90.7 fL (80-100); Mean Platelet Volume 9.1 fL (7.4-10.4); Platelet Count 330 K/uL (130-400); RDW Coefficient of Variation 13.8 % (11.5-14.5); RDW Standard Deviation 45.8 fL (36.4-46.3); White Blood Count 11.49 K/uL (4.8-10.8)
[2021-08-30 08:36] LABS: BUN Creatinine Ratio 20.4 (10-20); Calcium 10.1 mg/dl (8.5-10.1); Creatinine Clr Calc Pharmacy 61.7 ml/min; Est GFR (African American) 72.9 ml/min; Est GFR (Non-African American) 62.9 ml/min; Potassium 4.1 mmol/L (3.5-5.1)
[2021-08-30] MEDS: ISOSORBIDE MONO EXTENDED REL 30 MG TABCR PO SCH (08:56)
[2021-08-30] MEDS: lisinopril 20 MG TAB PO SCH (08:57)
[2021-08-30] MEDS: hydroCHLOROthiazide 25 MG TAB PO SCH (08:57)
[2021-08-30] MEDS: FELODIPINE 5 MG TABCR PO SCH (08:57)
[2021-08-30] MEDS: PANTOprazole 40 MG TAB PO SCH (08:58)
[2021-08-30] MEDS: NICOTINE 14 MG/24 HR PATCH TD SCH (08:58)
--- NOTE | 2021-08-30 12:47 | Hospitalist Progress Note ---
Date of Service August 30, 2021 Assessment & Plan (1) Chest pain: Plan: Atypical Chest pain Cardiac vs musculoskeletal related to recent shoulder surgery EKG showed no signs of acute ischemia Troponin is negative Echo showed no wall motion abnormality Appreciate cardiology input Consider stress test as outpatient as per cardiology Needs follow-up with cardiology upon discharge No recurrence of chest pain (2) Hypertensive urgency: Plan: H/O sleep apnea, intolerance to CPAP in the past Continue lisinopril, HCTZ, isosorbide Avoid AV diandra blocking agents given bradycardia History of intolerance to amlodipine Appreciate cardiology input Advised to repeat sleep study as outpatient Added felodipine 5 mg daily May need further adjustment of medications as outpatient. Anxiety Depression Appreciate psychiatry input Continue Escitalopram Added mirtazapine (3) CAD (coronary artery disease): Plan: H/o cardiac stents Continue ASA, plavix, zetia (4) Depression: Plan: Management as above (5) Gout: Plan: Continue allopurinol (6) DVT prophylaxis: Plan: SCD Ambulate Admission and Anticipated Discharge Date Admission Date: August 28, 2021 Subjective Patient is seen and examined at bedside States feeling much better today Anxious to get discharged No recurrence of chest pain Denies any shortness of breath, dizziness, nausea, abdominal pain Review of Systems Review of Systems: All systems reviewed & are unremarkable except as noted in Subjective Physical Exam Physical Exam: Physical Exam: Vitals signs as noted above General Appearance:Moderately built and nourished, no apparent distress Head: normocephalic, Atraumatic Eyes: normal inspection, EOMI Neck: supple, Trachea midline Respiratory/Chest: Normal breath sounds, CTA, No accessory muscle use Cardiovascular: S1, S2, No murmur Abdomen/GI:Soft, Non tender, Bowel sounds present Extremities/Musculoskeletal:normal inspection, no edema, Left Shoulder Surgical Scar Neurologic/Psych:AAOX3, grossly no focal neurological deficits Skin: normal color, warm Results & Data Results & Data ([facility]) Vital Signs (Past 12 Hours) Vital Signs Temp Pulse Pulse Pulse Resp BP Pulse Ox 08/30/21 11:05 36.9 C 105 H 18 169/100 H 96 08/30/21 07:50 36.6 C 75 20 157/82 H 92 08/30/21 07:00 64 08/30/21 02:54 36.6 C 73 16 126/78 92 (1) Chest pain Chest pain type: unspecified Qualified Code(s): R07.9 - Chest pain, unspecified
--- NOTE | 2021-08-30 12:55 | Discharge Summary ---
Date of Service August 30, 2021 Admission HPI Per Admitting Provider CHIEF COMPLAINT: Chest pain. HISTORY OF PRESENT ILLNESS: A 66-year-old male with past medical history significant for hyperlipidemia, gout, prediabetes, COPD, chronic sleep apnea, chronic ischemic heart disease, Chaves esophagus, sensorineural hearing loss, bilateral, lumbar radiculopathies, psoriasis, tobacco abuse disorder, history of cardiac stent, depression, anxiety. The patient currently presents with chest pain. The patient says since last 1 week he is having on and off chest pain in one spot in the lower part of the left chest below his nipple area radiating to his back, but today it got worse, which prompted him to come to the hospital. The patient says that when he is at rest the pain is better, when he ambulates the pain comes back, and associated with some sweating, nausea and shortness of breath. Denies any cough, no fever, no chills, no headache, no runny nose, no sore throat. Appetite is okay. No difficulty swallowing. Currently, no abdominal pain. Normal bowel and bladder movements. No rash. Admission Exam Per Admitting Provider PHYSICAL EXAMINATION: GENERAL: The patient is of moderate build, not in acute distress. VITAL SIGNS: Temperature 36.6, pulse 60, respiratory rate 19, blood pressure 136/71, oxygen 97% on 2 liters. HEENT: Pupils equal, round, and reactive to light. Oral mucosa moist. NECK: No JVD. No neck masses. CARDIOVASCULAR: S1 and S2 heard. Regular rate and rhythm. No murmur, no gallop. RESPIRATORY SYSTEM: Normal AP diameter. No accessory muscle use. No wheezing, no crackles. ABDOMEN: Soft, bowel sounds present, nontender, no distention. CENTRAL NERVOUS SYSTEM: Cranial nerves II-XII grossly intact, nonfocal. EXTREMITIES: No edema, no erythema. Principal Diagnosis Atypical Chest pain Hypertensive urgency Anxiety Discharge Data Allergies Allergy/AdvReac Type Severity Reaction Status Date / Time azithromycin Allergy Intermediate Hives Verified 08/26/21 18:04 Penicillins Allergy Intermediate HIVES Verified 08/26/21 18:04 Sulfa (Sulfonamide Allergy Intermediate HIVES Verified 08/26/21 18:04 Antibiotics) tetanus toxoid, adsorbed Allergy Intermediate swelling Verified 08/26/21 18:04 simvastatin AdvReac Intermediate MUSCLE PAIN Verified 08/26/21 18:04 Consultations 08/26/21 19:19 ED Decision to Admit Stat 08/27/21 08:00 Consult Cardiology Routine 08/29/21 08:55 Consult Psychiatry Routine Ordered Studies 08/26/21 17:59 CT angio chest PE protocol Stat Hospital Course (1) Chest pain: Atypical Chest pain Cardiac vs musculoskeletal related to recent shoulder surgery EKG showed no signs of acute ischemia Troponin is negative Echo showed no wall motion abnormality Appreciate cardiology input Consider stress test as outpatient as per cardiology Needs follow-up with cardiology upon discharge No recurrence of chest pain (2) Hypertensive urgency: H/O sleep apnea, intolerance to CPAP in the past Continue lisinopril, HCTZ, isosorbide Avoid AV diandra blocking agents given bradycardia History of intolerance to amlodipine Appreciate cardiology input Advised to repeat sleep study as outpatient Added felodipine 5 mg daily May need further adjustment of medications as outpatient. Anxiety Depression Appreciate psychiatry input Continue Escitalopram Added mirtazapine (3) CAD (coronary artery disease): H/o cardiac stents Continue ASA, plavix, zetia (4) Depression: Management as above (5) Gout: Continue allopurinol (6) DVT prophylaxis: SCD Ambulate Total Time Total Time Spent Total Time Spent (In Minutes): 41 minutes Discharge Plan Discharge Items Patient Disposition: Home - Self-Care Reason For Visit: CHEST PAIN Discharge Diagnosis: Atypical Chest pain Hypertensive urgency Anxiety Activity: Per Instructions section Exercise/Sports: Wait until after follow-up appointment Non-emergency contact: Primary Care Provider and [employer] Off[employer]arer Call non-emergency contact if: you have any medication questions, your symptoms worsen, your pain is concerning for you and you have a fever Follow-up/Referrals: Marquise Orozco MD [Primary Care Provider] - 09/02/21 9:00 am (Date & Time 09/02/2021 9:00 AM Provider Marquise Orozco MD Department Family Practice [facility] ) Diet: Heart Healthy Addtl Attending Provider Instructions: Follow-up with your primary care physician on 09/02/2021 9:00 AM 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 ---Your piano instructor may consider you to get a stress test as outpatient. Seek immediate medical attention if your symptoms reoccur or worsen Please take all medications as instructed on discharge list below. Please call if you have any questions or problems. You can reach a [facility] hospitalist on duty at [facility] 24 hours a day by calling [facility] [employer] In[employer] Provider Instructions: Psychiatry: consider addition of mirtazapine 15mg qHS for help with insomnia, anxiety and low appetite. Continue with lexapro 20mg qd. Pending Studies at Discharge: No Stand-Alone Forms: [facility], Smoking Cessation Medications and DC Order Prescriptions: New felodipine 5 mg Tablet Extended Release 24 Hr 5 mg PO QAM Qty: 30 RF: 1 isosorbide mononitrate 30 mg Tablet Extended Release 24 Hr 30 mg PO QAM Qty: 30 RF: 1 lisinopril 20 mg Tablet 20 mg PO QAM Qty: 30 RF: 1 mirtazapine 15 mg Tablet 15 mg PO HS Qty: 30 RF: 1 hydrochlorothiazide 25 mg Tablet 25 mg PO QAM Qty: 30 RF: 1 pantoprazole 40 mg Tablet,Delayed Release (Dr/Ec) 40 mg PO QAM Qty: 30 RF: 0 Continued acetaminophen [Tylenol] 325 mg Tablet 325 mg PO QID PRN (Reason: pain/fever) RF: 0 clopidogrel 75 mg tablet 75 mg PO QPM RF: 0 aspirin 81 mg Tablet,Delayed Release (Dr/Ec) 81 mg PO QPM RF: 0 nitroglycerin 0.4 mg Tablet, Sublingual 0.4 mg Sublingual UD PRN (Reason: chest pains) RF: 0 allopurinol 300 mg tablet 300 mg PO QPM RF: 0 escitalopram oxalate [Lexapro] 20 mg tablet 20 mg PO QPM RF: 0 ezetimibe 10 mg tablet 10 mg PO QPM RF: 0 Discontinued lisinopril 10 mg tablet 10 mg PO QPM RF: 0 Discharge Orders: Discharge Order (Routine); Ordered 08/30/21 Ordered By: Jovayn Otero Admission Data Admit Date/Time: 08/28/21 12:44 Attending Provider: Jovany Otero Admit Provider: Ag Wolf Primary Care Provider: Marquise Orozco Other Providers: Ag Wolf ; Carlos Gallagher Erica K. ; Julia Mora ; Veronica García ; Marquise Del Toro Other Interventions: Discharge Summary Assessment (RN) Last Done: 08/30/21 13:53
== END 2021-08-30 15:15 | disposition home or self-care (01) | DRG 305 ==
LOC: ED 17:09 → EDINP 17:09 → SUATTDRO 20:41 → 2N 21:26